=== PATIENT | female | born 1960 | race Caucasian/White ===

== ENCOUNTER → 2022-10-26 12:41 | Outpatient (CLI) | payer BC, SELFPAY ==
--- NOTE | ~2022-10-26 | XR_ITS ---
XR chest 2V 10/26/2022 13:07 Indication: Cough Procedure: 2 view chest Comparison: No prior studies for comparison. Findings: Bilateral interstitial infiltrates are present. Small pleural effusions. No pneumothorax. H eart size normal. Impression: 1: Bilateral interstitial infiltrates which may represent edema or pneumonia. 2: Small pleural effusions. Reviewed, dictated and finalized at location B. Impression: 1: Bilateral interstitial infiltrates which may represent edema or pneumonia. 2: Small pleural effusions.
== END ==
PROVIDERS: PCP Internal Medicine Geriatric Medicine
DX: R05.9 Cough, unspecified (principal); J90 Pleural effusion, not elsewhere classified; R91.8 Other nonspecific abnormal finding of lung field
CPT/HCPCS: 71046

== ENCOUNTER → 2022-12-09 11:41 | Outpatient (CLI) | payer BC, SELFPAY ==
--- NOTE | ~2022-12-09 | CT_ITS ---
Clinical Indication: Shortness of breath, pneumonia, fever CT Scan of the Chest with Contrast: Technique: Contiguous sections were acquired throughout the chest after intravenous administration of 75 cc of Omnipaque 350. Dose reduction technique was used on this scan by utilizing automated exposu re control and iterative reconstruction technique. The dose-length product (DLP) was 145.12 mGy-cm. Findings: There is no evidence of any significant mediastinal, hilar or axillary lymphadenopathy. No large cent ral pulmonary embolus. There is no evidence of aortic dissection or aneurysm. There is no evidence of pleural or pericardial effusion. The lungs are clear. No pulmonary nodules or infiltrates are noted. Images through the upper abdomen reveal probable left hepatic lobe cyst. Impression: Clear lungs. No significant abnormality seen. Reviewed, dictated and finalized at [facility]. Impression: Clear lungs. No significant abnormality seen.
[2022-12-09 12:07] LABS: Estimated Glomerular Filt Rate > 60
== END ==
PROVIDERS: PCP Internal Medicine Geriatric Medicine
DX: R06.02 Shortness of breath (principal); R50.81 Fever presenting with conditions classified elsewhere
CPT/HCPCS: 71260; Q9967

== ENCOUNTER 2025-03-27 13:55 | Outpatient (CLI) | payer BC, SELFPAY ==
--- NOTE | ~2025-03-27 | MM_ITS ---
EXAMINATION: screening [facility] BI w seven INDICATION: Asymptomatic, referred for screening mammogram COMPARISON: None available TECHNIQUE: Digital Breast Tomosynthesis CC, MLO views of Both breasts were obtained with computer-aided detection to assist in interpretation of the study. FINDINGS: There are scattered areas of fibroglandular density. There is an asymmetry seen on the MLO view in the Superior left breast at posterior third. Elsewhere, there are no mammographic features of malignancy. IMPRESSION: 1. Left breast Asymmetry. 2. No evidence of malignancy in the Right breast. RECOMMENDATION: Left breast Diagnostic mammogram with true lateral, appropriate spot compression views and an ultrasound if needed. BI-RADS Category 0: Incomplete: Needs additional imaging evaluation. Reviewed, dictated and finalized at location B. IMPRESSION: 1. Left breast Asymmetry. 2. No evidence of malignancy in the Right breast. RECOMMENDATION: Left breast Diagnostic mammogram with true lateral, appropriate spot compressio n views and an ultrasound if needed. BI-RADS Category 0: Incomplete: Needs additional imaging evaluation.
--- OUTSIDE RECORDS SUMMARY | 2025-03-27 15:37 | XMS_ITS | Encounter Summary ---
Author Organization [facility] Address [address] [place] [address] Care Team Providers Care Corral Boss Name Role Phone Justina Berry MD Primary Care Provider [phone] Encounter Details Date Type Department Care Team (Latest Contact Info) Description 08/27/2024 Spontohart Message Enc [address] [address] Justina Berry MD [address] [place] [address] [facility] medicine Social History Tobacco Use Types Packs/Day Years Used Date Smoking Tobacco: Never Smokeless Tobacco: Never Comments:Counseled by Dr. Valentine luna. AUDIT-C Answer Date Recorded Q1: How often do you have a drink containing alcohol? Never 05/18/2024 Q2: How many drinks containi ng alcohol do you have on a typical day when you are drinking? Patient does not drink Q3: How often do you have si x or more drinks on one occasion? 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
--- OUTSIDE RECORDS SUMMARY | 2025-03-27 15:37 | XMS_ITS | Clinical Summary ---
Author Organization [facility] Address [address] [address] Care Team Providers Care Client Support Consultant Name Role Phone Unavailable Primary Care Provider Unavailabl e Medications cefdinir (OMNICEF) 300 mg capsule Take 1 capsule (300 mg total) by mouth 2 (two) times a day for 7 days 14 Capsule 10/29/19 23 Active benazepriL (LOTENSIN) 20 mg tablet Take 1 Tablet (20 mg) by mouth daily. 90 Tablet 1 03/01/20 23 Active famotidine (PEPCID) 20 mg tablet Take 1 tablet (20 mg total) by mouth 2 (two) times a day as needed for heartburn 180 Tablet 1 03/01/20 23 Active indapamide (LOZOL) 1.25 mg tablet Take 1 tablet (1.25 mg total) by mouth daily as needed (Blood pressure above 140/80) 90 Tablet 1 03/01/20 23 Active atorvastatin (LIPITOR) 20 mg tablet Take 1 tablet (20 mg total) by mouth daily 90 Tablet 1 03/01/20 23 Active metFORMIN (GLUCOPHAGE XR) 500 mg Extended Release 24 hour tablet Take 2 tablets (1,000 mg total) by mouth daily with breakfast 180 Tablet 1 4 9:08 AM CDT 03/01/20 23 Active benzonatate (TESSALON) 100 mg capsule Take 1-2 capsules 3 times a day for cough as needed 42 Capsule 4 3:46 PM SALES ADMINISTRATION MANAGER 07/23/19 24 Active promethazine-d extromethorpha n (PHENERGAN-DM) 6.25-15 mg/5 mL syrup Take 5 mL by mouth every 4 (four) hours as needed for cough 120 mL 4 2:35 PM SALES ADMINISTRATION MANAGER 07/29/19 24 Active blood sugar diagnostic (OneTouch Verio test strips) Strip Use to test glucose levels twice daily 200 Strip 3 09/13/19 24 Active fluticasone propionate (FLONASE) 50 mcg/spray [place], Suspension nasal inhaler Administer 2 sprays in each nostril daily 16 Gram 11 09/13/19 24 Active traZODone (DESYREL) 50 mg tablet Take 1 tablet (50 mg total) by mouth nightly 90 Tablet 1 09/13/19 24 Active ipratropium bromide (ATROVENT) 21 mcg (0.03 %) [place], Non-Aerosol Administer 2 sprays into each nostril 2 (two) times a day 30 mL 5 09/13/19 24 Active traZODone (DESYREL) 50 mg tablet Take 1 tablet (50 mg total) by mouth nightly. 90 Tablet 1 4 6:49 PM CDT 03/14/20 24 Active metFORMIN (GLUCOPHAGE XR) 500 mg Extended Release 24 hour tablet Take 2 Tablets (1,000 mg) by mouth daily with breakfast. 180 Tablet 1 4 6:49 PM CDT 03/14/20 24 Active indapamide (LOZOL) 1.25 mg tablet Take 1 Tablet (1.25 mg) by mouth 1 time daily as needed. (Blood pressure above 140/80) 90 Tablet 1 4 2:17 PM SALES ADMINISTRATION MANAGER 03/14/20 24 Active glimepiride (AMARYL) 1 mg tablet Take 0.5-1 Tablets (0.5-1 mg) by mouth daily in the morning before breakfast. Adjusting to keep fasting blood sugar below 120. 90 Tablet 1 5 3:16 PM CDT 03/14/20 24 Active fluticasone propionate (FLONASE) 50 mcg/spray [place], Suspension nasal inhaler Administer 2 Sprays in each nostril daily. 16 Gram 11 4 2:23 PM CDT 03/14/20 24 Active famotidine (PEPCID) 20 mg tablet Take 1 Tablet (20 mg) by mouth 2 times daily as needed for heartburn. 180 Tablet 1 4 2:23 PM CDT 03/14/20 24 Active empagliflozin (Jardiance) 25 mg tablet Take 1 Tablet (25 mg) by mouth daily. 90 Tablet 2 03/14/20 24 Active benazepriL (LOTENSIN) 20 mg tablet Take 1 Tablet (20 mg) by mouth daily. 90 Tablet 1 4 2:17 PM SALES ADMINISTRATION MANAGER 03/14/20 Active atorvastatin (LIPITOR) 20 mg tablet Take 1 Tablet (20 mg) by mouth daily. 90 Tablet 1 5 4:28 PM SALES ADMINISTRATION MANAGER 03/14/20 24 Active atorvastatin (LIPITOR) 20 mg tablet Take 1 tablet (20 mg total) by mouth nightly at bedtime. 90 Tablet 1 05/18/20 24 Active benazepriL (LOTENSIN) 20 mg tablet Take 1 tablet (20 mg total) by mouth daily. 90 Tablet 1 05/18/20 24 Active famotidine (PEPCID) 20 mg tablet Take 1 tablet (20 mg total) by mouth 2 (two) times daily. 180 Tablet 1 05/18/20 Active fluticasone propionate (FLONASE) 50 mcg/spray [place], Suspension nasal inhaler ADMINISTER 2 SPRAYS IN EACH NOSTRIL DAILY. 16 Gram 5 05/18/20 Active glimepiride (AMARYL) 1 mg tablet Take 0.5-1 Tablets (0.5-1 mg) by mouth daily. 90 Tablet 1 5 3:15 PM SALES ADMINISTRATION MANAGER 05/18/20 24 Active ipratropium bromide (ATROVENT) 21 mcg (0.03 %) [place], Non-Aerosol ADMINISTER 2 sprays by nasal route 2 (two) times daily. 30 mL 1 05/18/20 Active metFORMIN (GLUCOPHAGE XR) 500 mg Extended Release 24 hour tablet Take 2 tablets (1,000 mg total) by mouth daily. 90 Tablet 1 5 4:28 PM SALES ADMINISTRATION MANAGER 05/18/20 24 Active cyanocobalamin (Vitamin B-12) 1,000 mcg Tablet Take 1 tablet (1,000 mcg total) by mouth daily. 90 Tablet 1 05/18/20 24 Active traZODone (DESYREL) 50 mg tablet Take 1 Tablet (50 mg) by mouth nightly as needed for sleep. 90 Tablet 1 05/18/20 24 Active metroNIDAZOLE (FLAGYL) 500 mg tablet Take 1 tablet (500 mg total) by mouth 2 (two) times a day for 7 days 14 Tablet 5 3:16 PM CDT 09/30/19 25 Active atorvastatin (LIPITOR) 20 mg tablet Take 1 Tablet (20 mg) by mouth daily at bedtime. 90 Tablet 1 5 12:43 PM CDT 11/16/19 25 Active benazepriL (LOTENSIN) 20 mg tablet Take 1 Tablet (20 mg) by mouth daily. 90 Tablet 1 5 12:43 PM CDT 11/16/19 25 Active famotidine (PEPCID) 20 mg tablet Take 1 tablet (20 mg total) by mouth 2 (two) times daily. 180 Tablet 1 11/16/19 25 Active fluticasone propionate (FLONASE) 50 mcg/spray [place], Suspension nasal inhaler Administer 2 sprays in each nostril once daily. 16 Gram 5 11/16/19 25 Active glimepiride (AMARYL) 1 mg tablet Take 0.5-1 tablet (0.5-1 mg total) by mouth daily. 90 Tablet 1 5 12:20 PM CDT 11/16/19 25 Active ipratropium bromide (ATROVENT) 21 mcg (0.03 %) [place], Non-Aerosol Administer 2 sprays in each nostril 2 (two) times daily. 30 mL 1 11/16/19 25 Active traZODone (DESYREL) 50 mg tablet Take 1 tablet (50 mg total) by mouth nightly as needed for Sleep. 90 Tablet 1 11/16/19 25 Active cyanocobalamin (Vitamin B-12) 1,000 mcg Tablet Take 1 tablet (1,000 mcg total) by mouth daily. 90 Tablet 1 11/16/19 25 Active indapamide (LOZOL) 1.25 mg tablet Take 1 tablet (1.25 mg total) by mouth daily. 30 Tablet 2 5 9:20 AM CDT 12/27/19 25 Active metFORMIN (GLUCOPHAGE XR) 500 mg Extended Release 24 hour tablet Take 2 tablets (1,000 mg total) by mouth daily. 90 Tablet 5 12:43 PM CDT 03/14/20 25 Active metFORMIN (GLUCOPHAGE XR) 500 mg Extended Release 24 hour tablet Take 2 tablets (1,000 mg total) by mouth daily. 90 Tablet 1 5 8:24 AM CDT 11/16/19 25 025 Discontinued Encounters Date Type Department Care Team Description 02/20/2025 External Device Data ST[facility] ABSTRACTION Provider, Abstract 01/09/2025 External Device Data [facility] ABSTRACTION Provider, Abstract from Last 3 Months Social History Tobacco Use Types Packs/Day Years Used Date Smoking Tobacco: Never Assessed Comments Unknown Sex and Gender Information Value Date Recorded Sex Assigned at Not on file Legal Sex Female 11:36 AM CDT Gender Identity Not on file Sexual Orientation Not on file Plan of Treatment Health Maintenance Due Date Last Done Comments DTAP/TDAP/TD VACCINES (1 - Tdap) 1981 HPV/Cotest (21-29) 1983 CERVICAL CANCER SCREENING 1992 HPV/Cotest (30-65) 1992 PAP SMEAR 1992 BREAST CANCER SCREENING 2002 COLORECTAL SCREENING 2007 Colorectal Cancer Screening 2007 FIT-DNA Q 3 years 2007 FIT/FOBT Q 1 year 2007 Flex Sig/CT Colonography Q 5 years 2007 ZOSTER VACCINE (1 of 2) 2012 RSV VACCINE (60+ or ) (1 - Risk 60-74 years 1-dose series) 2022 INFLUENZA VACCINE (#1) 2025 Insurance RX [employer] (INTERNAL) [facility] [employer] Commercial
--- OUTSIDE RECORDS SUMMARY | 2025-03-27 15:37 | XMS_ITS | Clinical Summary ---
Author Organization [facility] Address [address] [place] [address] Care Team Providers Care Financial Data Analyst Name Role Phone Justina Berry MD Primary Care Provider [phone] Allergies Active Allergy Reactions Criticality Noted Date Comments Amoxicillin-Pot Clavulanate Diarrhea,Nausea Only Low 10/10/2018 Dulaglutide Other (see comment) Low 02/01/2019 Bloating/Belching/G as Esomeprazole Other (see comment) Low 07/20/2019 Intestinal cramping with bid disong Levofloxacin Dizziness,Nausea Only Low 11/09/2022 Sulfa Antibiotics Diarrhea,Nausea and Vomiting,Nausea Only,Other (see comment),Unknown,Vom iting Low 07/20/2019 Medications Glucose Blood (ONETOUCH VERIO) test strip Use to test glucose levels twice daily 4 Active vitamin B-12 (CYANOCOBALAMIN ) (CYANOCOBALAMIN ) 1000 mcg tabletIndicatio ns:Vitamin B 12 deficiency Take 1 tablet (1,000 mcg total) by mouth daily. 90 tablet 1 5 026 Active traZODone (DESYREL) 50 MG tabletIndicatio ns:Primary insomnia Take 1 tablet (50 mg total) by mouth nightly as needed for Sleep. 90 tablet 1 5 Active ipratropium (ATROVENT) 0.03 % nasal sprayIndication s:Environmental and seasonal allergies 2 sprays by Nasal route 2 (two) times daily. 30 mL 1 5 Active glimepiride (AMARYL) 1 MG tabletIndicatio ns:Type 2 diabetes mellitus with hyperglycemia, without long-term current use of insulin (CMS/HCC HHS/HCC) Take 0.5-1 tablets (0.5-1 mg total) by mouth daily. 90 tablet 1 5 Active fluticasone propionate (FLONASE) 50 MCG/ACT nasal sprayIndication s:Environmental and seasonal allergies 2 sprays by Nasal route daily. 16 g 5 5 Active famotidine (PEPCID) 20 MG tabletIndicatio ns:Gastroesopha geal reflux disease without esophagitis Take 1 tablet (20 mg total) by mouth 2 (two) times daily. 180 tablet 1 5 025 Active empagliflozin (JARDIANCE) 25 MG tabletIndicatio ns:Type 2 diabetes mellitus with hyperglycemia, without long-term current use of insulin (CMS/HCC HHS/HCC) Take 1 tablet (25 mg total) by mouth daily. 90 tablet 3 5 Active benazepril (LOTENSIN) 20 MG tabletIndicatio ns:Type 2 diabetes mellitus with hyperglycemia, without long-term current use of insulin (CMS/HCC HHS/HCC),Hypert ension associated with diabetes (CMS/HCC HHS/HCC) Take 1 tablet (20 mg total) by mouth daily. 90 tablet 1 5 Active atorvastatin (LIPITOR) 20 MG tabletIndicatio ns:Type 2 diabetes mellitus with hyperglycemia, without long-term current use of insulin (CMS/HCC HHS/HCC),Hyperl ipidemia associated with type 2 diabetes mellitus (CMS/HCC HHS/HCC) Take 1 tablet (20 mg total) by mouth nightly at bedtime. 90 tablet 1 5 Active indapamide (LOZOL) 1.25 MG tabletIndicatio ns:Hypertension associated with diabetes (CMS/HCC HHS/HCC) Take 1 tablet (1.25 mg total) by mouth daily. 30 tablet 2 5 Active metFORMIN ER (GLUCOPHAGE-XR) 500 MG 24 hr tabletIndicatio ns:Type 2 diabetes mellitus with hyperglycemia, without long-term current use of insulin (CMS/HCC HHS/HCC) Take 2 tablets (1,000 mg total) by mouth daily. 90 tablet 5 Active metFORMIN ER (GLUCOPHAGE-XR) 500 MG 24 hr tabletIndicatio ns:Type 2 diabetes mellitus with hyperglycemia, without long-term current use of insulin ([facility]) Take 2 tablets (1,000 mg total) by mouth daily. 90 tablet 1 5 025 Discontinued Active Problems No known active problems Immunizations Immunization Administration Dates Next Due Fluzone (IIV3, Trivalent, 0. 5 ML Prefilled Syringe) 05/18/2024 Influenza (Generic) 05/08/2021,,04/17/2015,2013 Influenza Adult (Generic) 05/14/2022,,04/02/2020,2018,07/07/2016 MMR (MMRII) 10/28/1988 Pneumococcal (Pneumovax 23) 07/07/2016 Pneumococcal (Prevnar 13) 07/11/2014 Pneumococcal (Prevnar 20) 11/15/2024 Shingrix 10/02/2022,08/03/2022 Tdap (Generic) 08/01/2018,06/15/2008 Social History Tobacco Use Types Packs/Day Years Used Date Smoking Tobacco: Never Smokeless Tobacco: Never Tobacco Cessation:Counseling Given: Yes Comments:Counseled by Dr. Berry. AUDIT-C Answer Date Recorded Q1: How often do you have a drink containing alcohol? Never 05/18/2024 Q2: How many drinks containi ng alcohol do you have on a typical day when you are drinking? Patient does not drink Q3: How often do you have si x or more drinks on one occasion? Never 05/18/2024 PHQ-2 Answer Date Recorded Patient Health Questionnaire-2 Score 0 11/15/2024 Comments Unknown Sex and Gender Information Value Date Recorded Sex Assigned at Not on file Legal Sex Female 9:00 AM CDT Gender Identity Not on file Sexual Orientation Not on file Last Filed Vital Signs Vital Sign Reading Time Taken Comments Blood Pressure 108/59 11/15/2024 8:18 AM CDT Pulse 69 11/15/2024 8:18 AM CDT Temperature 37 C (98.6 F) 11/15/2024 8:18 AM CDT Respiratory Rate 16 11/15/2024 8:18 AM CDT Oxygen Saturation 98% 11/15/2024 8:18 AM CDT Inhaled Oxygen Concentration - - Weight 67.8 kg (149 lb 6.4 oz) 11/15/2024 8:18 A M CDT Height 167.6 cm (5' 6) 11/15/2024 8:18 AM CDT Body Mass Index 24.11 11/15/2024 8:18 AM CDT Plan of Treatment Upcoming Encounters Date Type Department Care Team (Late st Contact Info) Description 05/23/2025 9: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 Office Visit [facility] [address] [place] [address] [address] [place], [place] [id number] Justina Berry MD [address] [facility] [address] [place], [place] [id number] Health Maintenance Due Date Last Done Comments Cervical Cancer Screening Pap with HPV Testing (Age 30 to 64) Every 5 Years 1992 COVID-19 Vaccine ( season) 2025 12/06/2021, 10/09/2020, 09/17/2020 Hemoglobin A1C 05/02/2025 10/31/2024, 08/0 03/2024, 08/27/2023, Additional history exists Annual Physical 05/18/2025 05/18/2024 Lipid Panel 10/31/2025 10/31/2024 Kidney Health Evaluation 11/15/2025 11/15/2024 Mammogram Screening 03/14/2026 03/14/2024, 03/01/2023, 02/26/2022, Additional history exists Diabetes: Retinopathy Eye Exam 06/13/2026 06/13/2024 Cervical Cancer Screening Pap Smear (Age 30 to 64) Every 3 Years 03/10/2027 03/10/2024 Cervical Cancer Screening with HPV 03/10/2027 DTaP, Tdap and Td Vaccines (3 - Td or Tdap) 08/01/2028 08/01/2018, 06/15/2008 Colorectal Cancer Screening Colonoscopy (10 Years) 07/27/2032 07/27/2022 RSV Immunization or 60+ Years (1 - 1-dose 75+ series) 2037 Zoster Vaccines Completed 10/02/2022, 08/03/2022 Hepatitis C Completed 10/31/2024 PHQ-2 ([facility]) Completed 11/15/2024 Pneumococcal Vaccine: 50+ Years Completed 11/15/2024, 07/07/2016, 07/11/2014 Meningococcal B Vaccine Aged Out No l onger eligible based on patient's age to complete this topic Meningococcal Vaccine Aged Out No angela zen eligible based on patient's age to complete this topic RSV Immunizations Under 20 Months Aged Out No longer eligible based on patient's age to complete this topic Procedures Procedure Name Priority Date/Time Associated Diagnosis Comments HEPATITIS C ANTIBODY W/RFX TO HCV RNA Routine 10/31/2024 8:08 AM CDT LIPID PANEL Routine 10/31/2024 8:08 AM CDT HEMOGLOBIN, GLYCOSYLATED Routine 10/31/2024 8:08 AM CDT DIABETIC RETINOPATHY EXAM (NEGATIVE)(SCAN ORDER) Routine 06/13/2024 COLONOSCOPY GENERIC (SCAN ORDER) 07/27/2022 from Last 3 Months or Most Recently Relevant to Health Maintenance Results * HEPATITIS C ANTIBODY W/RFX TO HCV RNA (10/31/2024 8:08 AM CDT) HEPATITIS C AB NON-REACT JOSE NON-REACT JOSE [facility] Comment: HCV antibody was non-reactive. There is no laboratory evidence of HCV infection. In most cases, no further action is required. However, if recent HCV exposure is suspected, a test for HCV RNA (test code 31410) is suggested. For additional information please refer to http://education.[employer]/faq/WLC94e8 (This link is being provided for informational/ educational purposes only.) 10/31/2024 8:08 AM CDT 10/31/2024 8:09 AM CDT Narrative Resulting Agency Comment Performing Organization Information: Site ID: [id number] Name: [facility] Address: [address] [place] [address] Director: Korina Wolff MD Justina Berry MD LABORATORY Final Result Performing Organization Address City/[facility]/ZIP Co de Phone Number [facility] [place] [address] [place] [address], * (ABNORMAL) HEMOGLOBIN, GLYCOSYLATED (10/31/2024 8:08 AM CDT) HGB A1C 7.1(H) <5.7 % of total Hgb [facility] [place] [place] Comment: For someone without known diabetes, a hemoglobin A1c value of 6.5% or greater indicates that they may have diabetes and this should be confirmed with a follow-up test. For someone with known diabetes, a value <7% indicates that their diabetes is well controlled and a value greater than or equal to 7% indicates suboptimal control. A1c targets should be individualized based on duration of diabetes, age, comorbid conditions, and other considerations. Currently, no consensus exists regarding use of hemoglobin A1c for diagnosis of diabetes for children. 10/31/2024 8:08 AM CDT 10/31/2024 8:09 AM CDT Narrative Resulting Agency Comment Performing Organization Information: Site ID: Name: [facility] Address: [address] [place] [id number] Director: Korina Wolff Justina Berry MD LABORATORY Final Result Performing Organization Address [facility] Co de Phone Number [facility] [address], * (ABNORMAL) LIPID PANEL (10/31/2024 8:08 AM CDT) CHOLESTEROL 142 <200 mg/dL [facility] HDL 37(L) > OR = 50 mg/dL [facility] TRIGLYCERIDES 244(H) <150 mg/dL [facility] Comment: If a non-fasting specimen was collected, consider repeat triglyceride testing on a fasting specimen if clinically indicated. Wandy et al. J. of Clin. Lipidol. 2015;9:129-169. LDL (CALCULATED) 71 mg/dL (calc) [facility] Comment: Reference range: <100 Desirable range <100 mg/dL for primary prevention; <70 mg/dL for patients with CHD or diabetic patients with > or = 2 CHD risk factors. LDL-C is now calculated using the Jessica calculation, which is a validated novel method providing better accuracy than the Friedewald equation in the estimation of LDL-C. Calos TREVIZO et al. BRANDON. 2013;310(19): 2766-1628 (http://education.[employer]/faq/DMB168) CHOL/HDL RATIO 3.8 <5.0 (calc) [facility] NON HDL CHOLESTEROL 105 <130 mg/dL (calc) [facility] Comment: For patients with diabetes plus 1 major ASCVD risk factor, treating to a non-HDL-C goal of <100 mg/dL (LDL-C of <70 mg/dL) is considered a therapeutic option. 10/31/2024 8:08 AM CDT 10/31/2024 8:09 AM CDT Narrative Resulting Agency Comment Performing Organization Information: Site ID: [id number] Name: [facility] Address: [address] [facility] [place] [address] Director: Korina Wolff MD Justina Berry MD LABORATORY Final Result Performing Organization Address [facility] Co de Phone Number JENI MCCOLLUM [facility] [address] [facility] [address], * DIABETIC RETINOPATHY EXAM (NEGATIVE) (06/13/2024) [facility] Scanned SCANNING Final Resu lt Performing Organization Address [facility] Co de Phone Number [facility] * COLONOSCOPY GENERIC (SCAN ORDER) (07/27/2022) 07/27/2022 [facility] Scanned SCANNING Final Resu lt from Last 3 Months or Most Recently Relevant to Health Maintenance Insurance [facility] Care Teams Financial Data Analyst Relationship Specialty Start Date End Date Justina Berry MD [address] [facility] [address] [place] [address] PCP - General INTERNAL MEDICINE 03/16/24
--- OUTSIDE RECORDS SUMMARY | 2025-03-27 15:38 | XMS_ITS | Encounter Summary ---
Author Organization [facility] Address [address] [place] [address] Phone Care Team Providers Care Basin Tender Name Role Phone Mckenzie Goodman MD Primary Care Provider [phone] Kathie Davis MD Unavailable [phone] Wayne Payne DO Unavailable [phone] Jil Pisano MD Unavailable Wally Meneses MD PhD Unavailable Angel Justin MD Unavailable No, Physician Primary Care Provider [phone] Encounter Details Date Type Department Care Team (Late st Contact Info) Description 02/04/2017 Orders Only [facility] [address] [place] [address] Mckenzie Goodman MD [address] [place] [address] Unspecified vitamin D deficiency (Primary Dx); Diabetes mellitus without complication (HCC); Other B-complex deficiencies Social History Tobacco Use Types Packs/Day Years Used Date Smoking Tobacco: Never Comments Unknown Sex and Gender Information Value Date Recorded Sex Assigned at Not on file Legal Sex Female 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 Gender Identity Not on file Sexual Orientation Not on file documented as of this encounter Plan of Treatment Scheduled Orders Name Type Priority Associated Diagnoses Orde r Schedule Microalbumin / creatinine ratio, urine, random Lab Routine Diabetes mellitus without complication (HCC) Expected: 02/16/2017, Expires: 02/04/2018 documented as of this encounter Procedures Procedure Name Priority Date/Time Associated Diagnosis Comments MICROALBUMIN, RANDOM URINE (W/CREATININE) Routine 02/25/2017 7:38 AM CDT CREATININE, URINE, RANDOM Routine 02/25/2017 7:38 AM CDT VITAMIN D 25 HYDROXY Routine 02/25/2017 7:38 AM CDT Unspecified vitamin D deficiency CHOLESTEROL, LDL, DIRECT Routine 02/25/2017 7:38 AM CDT Diabetes mellitus without complication (HCC) HEMOGLOBIN A1C Routine 02/25/2017 7:38 AM CDT Diabetes mellitus without complication (HCC) VITAMIN B12 Routine 02/25/2017 7:38 AM CDT Other B-complex deficiencies COMPREHENSIVE METABOLIC PANEL Routine 02/25/2017 7:38 AM CDT Diabetes mellitus without complication (HCC) documented in this encounter Results * MICROALBUMIN, RANDOM URINE (W/CREATININE) (02/25/2017 7:38 AM CDT) Microalbumin, ur 1.6 See Note: mg/dL [facility] - [place] Comment: Reference Range: Reference Range Not established Microalbumin/creat ratio 6 <30 mcg/mg creat [facility] [place] Comment: The ADA defines abnormalities in albumin excretion as follows: Category Result (mcg/mg creatinine) Normal <30 Microalbuminuria 30-299 Clinical albuminuria > OR = 300 The ADA recommends that at least two of three specimens collected within a 3-6 month period be abnormal before considering a patient to be within a diagnostic category. 02/25/2017 7:38 AM CDT 02/25/2017 7:38 AM CDT Narrative [facility] - 02/26/2017 11:55 AM CDT FASTING:YES Resulting Agency Comment Performing Organization Information: Site ID: [id number] Name: Jeni Reese Address: [id number] [place] [address] Director: Wilfrido Hernandez D.O., MPH us Mckenzie Goodman MD LAB URINE ORDERABLES Final Result Performing Organization Address [facility] Co de Phone Number [facility] * Creatinine, urine, random (02/25/2017 7:38 AM CDT) Creatinine, ur 255 20 - 320 mg/dL [facility] [employer] - [place] 02/25/2017 7:38 AM CDT 02/25/2017 7:38 AM CDT Narrative [facility] - 02/26/2017 11:55 AM CDT FASTING:YES Resulting Agency Comment Performing Organization Information: Site ID: [id number] Name: Jeni Reese Address: [id number] [place] [address] Director: Wilfrido Hernandez D.O., MPH us Mckenzie Goodman MD LAB URINE ORDERABLES Final Result Performing Organization Address [facility] Phone Number [facility] * (ABNORMAL) Comprehensive metabolic panel (02/25/2017 7:38 AM CDT) Glucose 285(H) 65 - 99 mg/dL [facility] [employer] - [place] Comment: Fasting reference interval For someone without known diabetes, a glucose value >125 mg/dL indicates that they may have diabetes and this should be confirmed with a follow-up test. BUN 15 7 - 25 mg/dL [facility] [place] Creatinine 0.82 0.50 - 1.05 mg/dL [facility] [place] Comment: For patients >49 years of age, the reference limit for Creatinine is approximately 13% higher for people identified as -Salvadorean. eGFR NON-AFR. CUBAN 81 > OR = 60 mL/min/1 .73m2 [facility] [place] EGFR 94 > OR = 60 mL/min/1 .73m2 [facility] [place] BUN/creat ratio NOT APPLICABLE 6 - 22 (calc) [facility] [place] Sodium 142 135 - 146 mmol/L [facility] [place] Potassium, pl 3.8 3.5 - 5.3 mmol/L [facility] [place] Chloride 103 98 - 110 mmol/L [facility] [place] CO2 29 20 - 31 mmol/L [facility] [place] Calcium 9.4 8.6 - 10.4 mg/dL [facility] [place] Protein, sr 6.9 6.1 - 8.1 g/dL [facility] [place] Albumin 4.3 3.6 - 5.1 g/dL [facility] [place] Globulin 2.6 1.9 - 3.7 g/dL (calc) [facility] [place] Alb/glob ratio 1.7 1.0 - 2.5 (calc) [facility] [place] Bilirubin, total 0.8 0.2 - 1.2 mg/dL [facility] [place] Alk phos 110 33 - 130 U/L [facility] [place] AST 21 10 - 35 U/L [facility] [place] ALT (SGPT) 28 6 - 29 U/L [facility] [place] Blood specimen (specimen) 02/25/2017 7:38 AM CDT 02/25/2017 7:38 AM CDT Narrative [facility] - 02/26/2017 11:55 AM CDT FASTING:YES Resulting Agency Comment Performing Organization Information: Site ID: [id number] Name: Jeni Reese Address: [address] [place] [address] [place] [address] Director: Wilfrido Hernandez D.O., MPH Mckenzie Goodman MD LAB BLOOD ORDERABLES Final Result [facility] - [facility] [place] * Cholesterol, LDL, direct (02/25/2017 7:38 AM CDT) LDL, direct 35 <130 mg/dL [facility] - [facility] Comment: Greatly elevated Triglycerides values (>1200 mg/dL) interfere with the dLDL assay. As no Triglycerides testing was ordered, interpret results with caution. Desirable range <100 mg/dL for patients with CHD or diabetes and <70 mg/dL for diabetic patients with known heart disease. Blood specimen (specimen) 02/25/2017 7:38 AM CDT 02/25/2017 7:38 AM CDT Narrative [facility] - 02/26/2017 11:55 AM CDT FASTING:YES Resulting Agency Comment Performing Organization Information: Site ID: [id number] Name: Jeni Reese Address: [address] [place] [address] Director: Wilfrido Hernandez D.O., MPH us Mckenzie Goodman MD LAB BLOOD ORDERABLES Final Result Performing Organization Address [facility] Co de Phone Number [employer] - [facility] [place] * (ABNORMAL) Hemoglobin A1c (02/25/2017 7:38 AM CDT) Hgb A1C 7.4(H) <5.7 % of total Hgb [facility] Comment: For someone without known diabetes, a [...] A1c for diagnosis of diabetes for children. Blood specimen (specimen) 02/25/2017 7:38 AM CDT 02/25/2017 7:38 AM CDT Narrative [facility] - 02/26/2017 11:55 AM CDT FASTING:YES Resulting Agency Comment Performing Organization Information: Site ID: [id number] Name: [facility] Address: [id number] [place] [address] [place] [address] Director: Wilfrido Hernandez D.O., MPH us Mckenzie Goodman MD LAB BLOOD ORDERABLES Final Result Performing Organization Address [facility] Co de Phone Number [facility]ano * Vitamin D 25 hydroxy (02/25/2017 7:38 AM CDT) Vitamin D 25-OH 33 30 - 100 ng/mL [facility] Comment: Vitamin D Status 25-OH Vitamin D: Deficiency: <20 ng/mL Insufficiency: 20 - 29 ng/mL Optimal: > or = 30 ng/mL For 25-OH Vitamin D testing on patients on D2-supplementation and patients for whom quantitation of D2 and D3 fractions is required, the QuestAssureD(TM) 25-OH VIT D, (D2,D3), LC/MS/MS is recommended: order code 86180 (patients >2yrs). For more information on this test, go to: http://education.GHash.IO/faq/HKO790 (This link is being provided for informational/educational purposes only.) Blood specimen (specimen) 02/25/2017 7:38 AM CDT 02/25/2017 7:38 AM CDT Narrative [facility] - 02/26/2017 11:55 AM CDT FASTING:YES Resulting Agency Comment Performing Organization Information: Site ID: [id number] Name: Jeni Reese Address: [address] [place] [address] Director: Wilfrido Hernandez D.O., MPH Mckenzie Goodman MD LAB BLOOD ORDERABLES Final Result Performing Organization Address [facility] Co de Phone Number [facility] * Vitamin B12 (02/25/2017 7:38 AM CDT) Vitamin B12 846 200 - 1,100 pg/mL [facility] Blood specimen (specimen) 02/25/2017 7:38 AM CDT 02/25/2017 7:38 AM CDT Narrative [facility] - 02/26/2017 11:55 AM CDT FASTING:YES Resulting Agency Comment Performing Organization Information: Site ID: [id number] Name: [facility] Address: [address] [place] [address] Director: Wilfrido Hernandez D.O., MPH Mckenzie Goodman MD LAB BLOOD ORDERABLES Final Result Performing Organization Address [facility] Co de Phone Number [facility] documented in this encounter Visit Diagnoses Diagnosis Unspecified vitamin D deficiency- Primary Diabetes mellitus without complication (HCC) Type II or unspecified type diabetes mellitus without mention of complication, not stated as uncontrolled Other B-complex deficiencies documented in this encounter Additional Health Concerns Infection Onset Date Last Indicated Resolved Time COVID: Suspected 01/16/2020 01/16/2020 01/20/2020 12:41 AM CDT Respiratory Infection (KAYE), contact + droplet Comment:Automatically added due to negative COVID-19 result. 01/20/2020 01/20/2020 02/03/2020 3:0 5 AM CDT COVID: Suspected 06/24/2021 06/24/2021 06/24/2021 3:44 PM CREDIT REPORTING CLERK COVID: Suspected 10/06/2022 10/06/2022 10/06/2022 11:18 AM CDT documented as of this encounter Care Teams Basin Tender Relationship Specialty Start Date End Date Mckenzie Goodman MD PCP - General 10/23/16 07/26/24 No, Physician PCP - General 09/27/24 Kathie Davis MD Consulting Physician Gastroenterology 07/13/17 Wayne Payne DO [address] [place] [address] Optometry 07/13/17 Jil Pisano MD [address] [address] Air Traffic [employer] Supervisor Obstetrics and Gynecology 07/13/17 Wally Meneses MD PhD [address] [address] Referring Physician Endocrinology 09/13/19 Angel Justin MD [address] [place] [address] Surgeon Orthopedic Surgery 12/06/20 documented as of this encounter
--- OUTSIDE RECORDS SUMMARY | 2025-03-27 15:38 | XMS_ITS | Encounter Summary ---
Author Organization [facility] Address [address] [place] [address] Phone Care Team Providers Care Education Diagnostician Name Role Phone Mckenzie Goodman MD Primary Care Provider [phone] Kathie Davis MD Unavailable Wayne Payne DO Unavailable Jil Pisano MD Unavailable [phone] Wally Meneses MD PhD Unavailable Angel Justin MD Unavailable [phone] No, Physician Primary Care Provider [phone] Encounter Details Date Type Department Care Team (Late st Contact Info) Description 10/26/2022 Orders Only [facility] [address] [place] [address] Mckenzie Goodman MD [address] [place] [address] Social History Tobacco Use Types Packs/Day Years Used Date Smoking Tobacco: Never Smokeless Tobacco: Never Alcohol Use Standard Drinks/Week Comments No 0 (1 standard drink = 0.6 oz pur e alcohol) PHQ-2 Answer Date Recorded PHQ-2 Total Score (If total score is 3 or more points, staff should administer the PHQ-9) 0 08/24/2022 Comments No Sex and Gender Information Value Date Recorded Sex Assigned at Not on file Legal Sex Female 3:06 PM GROUTMAN Gender Identity Not on file Sexual Orientation Not on file Occupation Industry Job Start Date Job End Date Not on file Not on file Not on file Not on file documented as of this encounter Plan of Treatment Not on file documented as of this encounter Procedures Procedure Name Priority Date/Time Associated Diagnosis Comments SCAN - RADIOLOGY/IMAGING 10/26/2022 documented in this encounter Results * SCAN - RADIOLOGY/IMAGING (10/26/2022) Anatomical Region Laterality Modality Other us Mckenzie Goodman MD Final Resu lt documented in this encounter Visit Diagnoses Not on filedocumented in this encounter Care Teams Education Diagnostician Relationship Specialty Start Date End Date Mckenzie Goodman MD PCP - General 10/23/16 07/26/24 No, Physician PCP - General 09/27/24 Kathie Davis MD Consulting Physician Gastroenterology 07/13/17 Wayne Payne DO [address] [place] [address] Optometry 07/13/17 Jil Pisano MD [address] [address] [employer] Drawing Operator Obstetrics and Gynecology 07/13/17 Wally Meneses MD PhD [address] [address] Referring Physician Endocrinology 09/13/19 Angel Justin MD [address] [place] [address] Surgeon Orthopedic Surgery 12/06/20 documented as of this encounter
--- OUTSIDE RECORDS SUMMARY | 2025-03-27 15:38 | XMS_ITS | Clinical Summary ---
Author Organization [facility] Address [address] [place] [address] Care Team Providers [employer] Name Role Phone Kathie Davis MD Unavailable [phone] Wayne Payne DO Unavailable [phone] Jil Pisano MD Unavailable Wally Meneses MD PhD Unavailable Angel Justin MD Unavailable [phone] No, Physician Primary Care Provider [phone] Allergies Active Allergy Reactions Criticality Noted Date Comments Amoxicillin-Pot Clavulanate Diarrhea,Nausea only Low 10/10/2018 Esomeprazole Other (See comments) Low 07/20/2019 Intestinal cramping with bid disong Levofloxacin Dizziness,Nausea only Low 11/09/2022 Semaglutide Nausea only Low 10/21/2018 Sulfa (Sulfonamide Antibiotics) Unknown,Diarrhea,Franky sea only,Vomiting,Nausea And Vomiting,Other (See comments) Low 07/20/2019 Dulaglutide Other (See comments) Low 02/01/2019 Bloating/Belching/G as Medications ipratropium (Atrovent) 21 mcg (0.03 %) nasal sprayIndications:C hronic rhinitis Administer 2 sprays into each nostril 2 (two) times a day 30 mL 5 09/13/19 Active Additional Information Patient not taking.Reported on 03/12/2025 blood glucose diagnostic (OneTouch Verio test strips) stripIndications:T ype 2 diabetes mellitus with microalbuminuria, without long-term current use of insulin ([facility]) Use to test glucose levels twice daily E11.9 200 strip 3 09/13/19 Active atorvastatin (LIPITOR) 20 mg tabletIndications: Type 2 diabetes mellitus with microalbuminuria, without long-term current use of insulin ([facility]),Multiple-typ e hyperlipidemia Take 1 tablet (20 mg total) by mouth daily 90 tablet 1 03/14/20 Active benazepriL (LOTENSIN) 20 mg tabletIndications: Hypertension complicating diabetes ([facility]) Take 1 tablet (20 mg total) by mouth daily 90 tablet 1 03/14/20 Active empagliflozin (Jardiance) 25 mg tabletIndications: Type 2 diabetes mellitus with microalbuminuria, without long-term current use of insulin ([facility]) Take 1 tablet (25 mg total) by mouth daily 90 tablet 2 03/14/20 Active famotidine (PEPCID) 20 mg tabletIndications: Gastroesophageal reflux disease without esophagitis Take 1 tablet (20 mg total) by mouth 2 (two) times a day as needed for heartburn 180 tablet 1 03/14/20 Active Additional Information Patient not taking.Reported on 03/12/2025 fluticasone propionate (FLONASE) 50 mcg/actuation nasal sprayIndications:C hronic rhinitis Administer 2 sprays into each nostril daily 1 each 03/14/20 Active Additional Information Patient not taking.Reported on 03/12/2025 glimepiride (AMARYL) 1 mg tabletIndications: type 2 diabetes mellitus Take 0.5-1 tablets (0.5-1 mg total) by mouth daily before breakfast Adjusting to keep fasting blood sugar below 120 90 tablet 1 03/14/20 Active Additional Information Patient not taking.Reported on 03/12/2025 indapamide (LOZOL) 1.25 mg tabletIndications: Hypertension complicating diabetes ([facility]),History of kidney stones Take 1 tablet (1.25 mg total) by mouth daily as needed (Blood pressure above 140/80) 90 tablet 1 08/27/20 24 Active metFORMIN XR (GLUCOPHAGE XR) 500 mg 24 hr tabletIndications: Type 2 diabetes mellitus with microalbuminuria, without long-term current use of insulin (HCC) Take 2 tablets (1,000 mg total) by mouth daily with breakfast 180 tablet 1 03/14/20 24 Active traZODone (DESYREL) 50 mg tabletIndications: Adjustment insomnia Take 1 tablet (50 mg total) by mouth nightly 90 tablet 1 03/14/20 24 Active Additional Information Patient not taking.Reported on 03/12/2025 cyanocobalamin (Vitamin B-12) 1,000 mcg tabletIndications: Prevention of Vitamin B12 Deficiency Take 1 tablet (1,000 mcg total) by mouth daily 03/14/20 Active Additional Information Patient not taking.Reported on 03/12/2025 Active Problems Problem Noted Date Diagnosed Date High grade squamous intraepi thelial lesion (HGSIL), grade 3 JOVANI, on biopsy of cervix 05/26/2024 Overview (05/28/2024): New diagnosis June 07, 2024 Dr. Pisano managing Viral URI with cough 07/29/2023 Assessment & Plan (07/29/2023 2:42 PM IMAGING CLERK): Symptoms for 2 weeks that have improved since onset, no fevers. Tested negative for COVID at home. Dry cough noted throughout exam, no other acute findings. Vitals stable. CXR done this morning was unremarkable. Likely viral, rxd promethazine Dm as needed for cough. Continue sinus rinses. Discussed antihistamine use (zyrtec/frankie) to help dry up mucous. Tylenol/Ibuprofen as needed for pain. Increase fluids (water) Cool mist humidifier at night Use sinus rinses to help flush bacteria and help with congestion. Encouraged honey, marshmallows, gelatin, or chloraseptic to help coat throat. Call with any worsening or persistent symptoms. Neutrophilia 11/23/2022 SOB (shortness of breath) 11/23/2022 Assessment & Plan (12/01/2022 4:08 PM CDT): Has resolved after diagnosis of interstitial PNA last month via CXR at [facility]. Repeat CXR here at [facility] on 11/13/22 was unremarkable, however patient still having fevers. Will order high resolution CT chest to r/o interstitial disease. Will repeat CBC due to neutrophilia on 11/09/22. Will refer to soccer ball assembler for further assessment. Finish most recent round of Doxycycline as directed. Fever 11/09/2022 Assessment & Plan (12/01/2022 4:08 PM CDT): Thought to be related to Pneumonia, has persisted for 6 weeks despite 3 weeks worth of antibiotic treatment. Has not had fevers while taking anitbiotics, only in between dosing. WBCs 2 weeks ago were elevated at 11.9 with neutrophilia at 10,115. No other abnormalities on differential. Emphysema, RLD. repeat CBC today. Ordered high resolution CT w contrast to r/o further PNA, mass, Finish most recent round of Doxycycline (3 days left). Call with any fevers. Will refer to [place] Inspector for further assessment. Assessment & Plan (11/09/2022 2:21 PM CDT): Likely related to pneumonia, see plan above. Family history of colon cancer 02/24/2022 Overview (02/24/2022): Added automatically from request for surgery [id number] Personal history of colonic polyps 02/24/2022 Overview (02/24/2022): Added automatically from request for surgery [id number] Adjustment insomnia 01/12/2018 Chronic rhinitis 12/02/2013 Overview (10/23/2016): Chronic rhinitis Hypertension complicating diabetes 12/02/2013 Overview (10/23/2016): Benign essential HTN Assessment & Plan (11/23/2022 3:29 PM CDT): BP stable in office today on current therapy. Continue current regimen and low salt diet. Assessment & Plan (11/09/2022 2:21 PM CDT): BP stable on current therapy. No acute exam findings. Continue current regimen and low salt diet. Diabetes mellitus 12/02/2013 Overview (10/23/2016): Diabetes mellitus Assessment & Plan (07/11/2019 9:46 AM IMAGING CLERK): She is here for follow up and evaluation of her diabetes since beginning Juluv about 4 weeks ago. Pt did not bring her glucometer or log of fasting blood sugars with her to this visit and reports that she has not been taking her sugar everyday. She will take fasting sugars daily for the next 2 weeks and then send a my chart message with her numbers. If her fasting blood sugars remain greater than 120 will add invokana or jardiance. She will have a HgbA1C prior to her visit with Dr. Ugarte in August. Multiple-type hyperlipidemia 12/02/2013 Overview (10/23/2016): Hyperlipemia History of kidney stones 12/02/2013 Overview (10/23/2016): Kidney stones Resolved Problems Problem Noted Date Diagnosed Date Resolved Date Interstitial pneumonia of both lungs 11/09/2022 09/13/2023 Assessment & Plan (11/09/2022 2:20 PM CDT): PNA confirmed on CXR done at [facility] 10/26/22. URI symptoms since 10/06/22 have improved, now just fatigued with low grade fevers. Has completed both Doxycycline and cefdinir with mild improvement, attempted levaquin but it made her dizzy and nauseous. Last labs were in August, will check CMP, CBC. Rxd another 7 days of cefdinir as directed. Push fluids. Keep repeat CXR and follow up in 1 month. Cough 10/06/2022 11/09/2022 Assessment & Plan (10/26/2022 12:20 PM CDT): Acute problem, present times about 4 weeks Physical examination as documented - no signs/symptoms of serious illness noted COVID 19 and influenza A/B in office - ALL negative Patient previously treated with doxycycline after a period of symptom management alone - no improvement/difference per patient report Suspect patient's symptoms are viral in etiology, possibly a bronchitis Discussed following up in office if fever continues to recur to draw labs to assess autoimmune etiology as autoimmune disease occasionally starts with abnormal recurrent/intermittent fever - discussed that I still believe symptoms are likely lingering viral infection vs patient having contracted possibly different viral infections shortly after resolution of one infection due to having similar symptoms that are resolving - patient verbalized understanding and agreement Recommended CXR (due to diminished breath sounds in bilateral lower lung perez) and continued symptom management/monitoring at this time (with a focus of suppressing cough prophylactically to help with chest discomfort, which is likely MSK strain secondary to coughing) - patient agreeable to plan Orders for AMS STAFF to arrange CXR - cough, rule out pneumonia vs structural abnormality Give fax number to patients for CXR results Orders for Rojelio Dickinson to arrange Continue benzonatate as needed for cough Continue acetaminophen and Aleve as needed for chest discomfort Consider OTC medications for symptoms as well - Mucinex to help thin mucous Stay hydrated, eat well, rest as needed Continue monitoring symptoms - report persistent or worsening symptoms to the office or go to ER Fax results of CXR to Dr. Ugarte and Gunnar Rivera NP Follow up as scheduled with Dr. Ugarte or sooner if necessary Assessment & Plan (10/06/2022 11:16 AM CDT): Acute problem, present times about 1 week Physical examination as documented - no signs/symptoms of serious illness noted COVID 19 and influenza A/B in office - ALL negative Suspect likely viral etiology Recommended continued symptom management/monitoring - patient agreeable to plan Orders for AMS STAFF to arrange None at this time Orders for Rojelio Dickinson to arrange Start benzonatate as needed for cough - can combine with OTC Delsym to help with cough Continue sinus rinses, DayQuil/NyQuil, Anthony's, Tylenol/Advil as needed Consider restarting Flonase and Atrovent nasal sprays - call office if needing refill Continue Benadryl at night - consider adding Zyrtec to morning medications Continue monitoring symptoms - report persistent or worsening symptoms to the office or go to ER Follow up as scheduled with Dr. Ugatre or sooner if necessary Encounter for screening colonoscopy 02/24/2022 08/24/2022 Overview (02/24/2022): Added automatically from request for surgery [id number] Traumatic closed fracture of lateral malleolus with minimal displacement 11/29/20200 12/2022 Chronic GERD 01/12/2018 06/04/2020 Right shoulder tendinitis 08/20/2017 Vitamin D deficiency 12/02/2013 020 Overview (10/23/2016): Vitamin D deficiency Cobalamin deficiency 12/02/2013 020 Overview (10/23/2016): B12 deficiency Encounters Date Type Department Care Team Description 03/19/2025 [facility] [address] [place] [address] Jil Pisano MD Pap and High Risk HPV and Genotyping (Cytology Component) 03/12/2025 1:35 PM CDT - 03/12/2025 11:59 PM CDT Hospital Encounter [facility] [address] [place] [address] Screening for malignant neoplasm of the cervix; Carcinoma in situ of endocervix Discharge Disposition: Discharge to home or self care 03/12/2025 10:50 AM CDT Office Visit [facility] [address] [place] [address] Jil Pisano MD Encounter for gynecological examination without abnormal finding (Primary Dx); Screening for malignant neoplasm of the cervix; Carcinoma in situ of endocervix from Last 3 Months Immunizations Immunization Administration Dates Next Due Flucelvax Influenza Quad 04/02/2020 Influenza, Quadrivalent, Inga l Culture-based MDCK, Preservative Free, Antibiotic Free, Intramuscular 05/14/2022,04/02/2020 Influenza, Quadrivalent, Spl it, Intramuscular 07/07/2016 Influenza, Quadrivalent, Spl it, Preservative Free, Intramuscular 04/19/2019 Influenza, Trivalent, IM (MDV) 05/08/2021,2014,07/11/2014 Influenza, Unspecified 05/06/2023(Deferr ed: Patient Refused),05/14/2022,04/18/2021 MMR 10/28/1988 Pneumococcal Conjugate PCV 13 07/11/2014 Pneumococcal Polysaccharide PPV23 07/07/2016 Tdap 08/01/2018,06/15/2008 ZOSTER Recombinant 10/02/2022,08/03/2022 Surgical History Surgery Date Site/Laterality Comments COLONOSCOPY W/ BIOPSIES AND POLYPECTOMY 09/29/2013 Colonoscopy (+) single tubular adenoma, family history colon cancer, due every 5 years, Susan LITHOTRIPSY 07/19/2010 - 08/18/2010 Lithotripsy 2010 COLONOSCOPY 10/23/2016 (-) Dr. Davis due in 5 years COLONOSCOPY 07/27/2022 (-) Dr. Davis due in 5 years family history colon cancer CERVICAL BIOPSY W/ LOOP ELECTRODE EXCISION 07/19/2023 - 07/18/2024 JOVANI 2-3 with clear margins. Medical History Medical History Date Comments Rhinitis Latex allergy, contact dermatitis Elevated blood pressure reading 11/2003 Elevated LFTs Diabetes (HCC) Menopause Kidney stone Collagenous colitis Hypertension Hypercholesteremia Traumatic closed fracture of lateral malleolus with minimal displacement 11/29/2020 Abnormal Pap smear of cervix 2023 ASC -H, HPV positive. Colpo - JOVANI 2. LEEP - JOVANI 2-3. Family History Medical History Relation Name Comments Diabetes Father Hypertension Father kidney stones Father Colon cancer Maternal Grandmother Colon cancer Mother's Brother Colon cancer Mother's Sister Diabetes Other Hypertension Other Kidney disease Other kidney stones Sister Relation Name Status Comments Father Maternal Grandmother Mother's Brother Mother's Sister Other Sister Social History Tobacco Use Types Packs/Day Years Used Date Smoking Tobacco: Never Smokeless Tobacco: Never Tobacco Cessation:Counseling Given: Not Answered Alcohol Use Standard Drinks/Week Comments No 0 (1 standard drink = 0.6 oz pur e alcohol) PHQ-2 Answer Date Recorded PHQ-2 Total Score (If total score is 3 or more points, staff should administer the PHQ-9) 0 09/13/2023 Personal Safety Answer Date Recorded Getting School Help Needed Denies 07/02 Comments No Sex and Gender Information Value Date Recorded Sex Assigned at Not on file Legal Sex Female 3:06 PM IMAGING CLERK Gender Identity Not on file Sexual Orientation Not on file Occupation Industry Job Start Date Job End Date Retired Not on file Not on file Not on file Obstetrics History Para Term AB IAB SAB Ectopic Multiple Livin g Live Births 2 2 2 0 0 2 Date Outcome GA Total Labor Labor/2nd/3rd Weight Sex Type Anes PTL Mery A1 A5 Name Clin Term Term Last Filed Vital Signs Vital Sign Reading Time Taken Comments Blood Pressure 100/68 03/12/2025 11:03 AM CDT Pulse 88 03/14/2024 11:06 AM CDT Temperature 36.3 C (97.3 F) 03/14/2024 11:06 AM CDT Respiratory Rate 18 03/14/2024 11:06 AM CDT Oxygen Saturation 97% 03/14/2024 11:06 AM CDT Inhaled Oxygen Concentration - - Weight 66.7 kg (147 lb) 03/12/2025 11:03 AM CDT Height 167.6 cm (5' 6) 03/12/2025 11:03 AM CDT Body Mass Index 23.73 03/12/2025 11:03 AM CDT Plan of Treatment Health Maintenance Due Date Last Done Comments Foot Exam 1960 Hepatitis B Screening 1980 Pneumococcal vaccine <65 (3 of 3 - PCV20 or PCV21) 07/07/2021 07/07/2016, 07/11/2014 Dilated Eye Exam 06/11/2024 06/11/2023 Hemoglobin A1C 08/27/2024 02/25/2024, 02/0 03/2024, 02/22/2023, Additional history exists Depression Screening 09/13/2024 09/13/2023, 08/24/2022, 07/08/2021, Additional history exists Albumin Creatinine Ratio, Urine 02/24/2025 02/25/2024, 08/27/2023, 02/22/2023, Additional history exists eGFR 02/24/2025 02/25/2024, 02/0 03/2024, 02/22/2023, Additional history exists Breast Cancer Screening-Mammogram 03/14/2025 03/14/2024, 03/01/2023, 02/26/2022, Additional history exists Covid-19 Vaccine (2024-08 6 season) 2025 12/06/2021, 10/09/2020, 09/17/2020 Influenza Vaccine (#1) 2025 , 05/14/2022, 05/14/2022, Additional history exists Lipid Panel 10/31/2025 10/31/2024, 0 02/2021, 07/20/2019, Additional history exists Cervical Cancer Screening 03/12/20262024, 03/12/2025, 03/10/2024, Additional history exists Regular Well Visit/Exam 18-64 03/12/2026, 03/10/2024, 09/13/2023, Additional history exists DTaP/Tdap/Td Vaccine (3 - Td or Tdap) 08/01/2028 08/01/2018, 06/15/2008 Colon Cancer Screening-Colonoscopy 07/27/2032 07/27/2022, 10/23/2016, 09/29/2013 Hepatitis C Screening Completed 12/24/2017 Colon Cancer Screening-CT Colonography Discontinued 07/27/2022, 10/23/2016, 09/29/2013 Colon Cancer Screening-DNA Stool Discontinued 07/27/2022, 10/23/2016, 09/29/2013 Colon Cancer Screening-FIT Discontinued 07/27, 10/23/2016, 09/29/2013 Colon Cancer Screening-Sigmoidoscopy Discontinued 07/27/2022, 10/23/2016, 09/29/2013 Zoster Vaccine Completed 10/02/2022, 08/03/2022 Procedures Procedure Name Priority Date/Time Associated Diagnosis Comments HIGH RISK HPV DNA DETECTION WITH GENOTYPING Routine 03/12/2025 1:35 PM CDT Screening for malignant neoplasm of the cervix Carcinoma in situ of endocervix PAP AND HIGH RISK HPV, REFLEX TO GENOTYPING Routine 03/12/2025 11:27 AM CDT Screening for malignant neoplasm of the cervix Carcinoma in situ of endocervix SCREENING MAMMOGRAM BILATERAL W YASIR Schedule Routine, Read Routine (OP Routine) 03/14/2024 10:15 AM CDT Encounter for screening mammogram for breast cancer COMPREHENSIVE METABOLIC PANEL Routine 02/25/2024 8:11 AM CDT Annual physical exam Type 2 diabetes mellitus with microalbuminuria, without long-term current use of insulin (HCC) Hypertension complicating diabetes (HCC) HEMOGLOBIN A1C Routine 02/25/2024 8:11 AM CDT Annual physical exam Type 2 diabetes mellitus with microalbuminuria, without long-term current use of insulin (HCC) Hypertension complicating diabetes (HCC) ALBUMIN CREATININE RATIO, URINE Routine 02/25/2024 8:11 AM CDT Annual physical exam Type 2 diabetes mellitus with microalbuminuria, without long-term current use of insulin (HCC) Hypertension complicating diabetes (HCC) COLONOSCOPY 07/27/2022 7:18 AM IMAGING CLERK LIPID PANEL Routine 07/26/2020 9:21 AM IMAGING CLERK Type 2 diabetes mellitus with microalbuminuria, without long-term current use of insulin (HCC) HEPATITIS C ANTIBODY Routine 12/24/2017 7:57 AM CDT Need for hepatitis C screening test from Last 3 Months or Most Recently Relevant to Health Maintenance Results * (ABNORMAL) High Risk HPV DNA Detection with Genotyping (Molecular component) (03/12/2025 1:35 PM CDT) HPV HR 16 Not Detected Not Detected [facility] Comment:Testing performed by : [facility], [address] [facility] [place]., [address] HPV HR 18 Not Detected Not Detected [facility] Comment:Testing performed by : [facility], [address] [facility] [place]., [address] HPV HR Non 16/18 Detected(A) Not Detected [facility] Comment: Interpretive Data Nucleic acid amplification for detection of high-risk Human Papilloma virus (HPV) is performed by the [employer] Deborah 6800 HPV test. This assay specifically detects HPV-16 and HPV-18 genotypes. The following HPV genotypes are detected as high-risk HPV: HPV-31, 33, 35, ,39, 45, 51, 52, 56, 58, 59, 66, and 68. This assay has been approved by the [place] Food and Drug Administration for detection of HPV in cervical specimens collected by a physician using an endocervical brush/spatula or cervical broom and placed in the ThinPrep Pap Test PreservCyt collection containers. The performance characteristics of this test have been verified by the [facility] Molecular Infectious Disease laboratory. Correlate with separately reported cytology results, as applicable. Interpretive data last revised 23 Testing performed by: [facility], [address] [place]., [address] Endocervical 03/12/2025 1:35 PM CDT 03/13/2025 3:40 PM CDT Narrative CERNER - 03/14/2025 8:54 AM CDT Clinical history and diagnosis->DX Z12.4 D06.9 2023- ASCUS,HPV POSITIVE. COLP/LEEP- JOVANI 3 Testing type->Screening Last menstrual period (date if known)->N/A Previous positive HPV history?->Yes Date of positive HPV->2023 Previous negative PAP?->No Previous atypical cytology->ASCUS Jil Pisano MD LAB BODY FLUIDS AND S TOOLS ORDERABLES Final Result Performing Organization Address City/State/[facility] Co de Phone Number [address] Department of Laboratories [place] [phone] [facility] * (ABNORMAL) Pap and High Risk HPV and Genotyping (Cytology Component) (03/12/2025 11:27 AM CDT) Thin prep (Pap test) 03/12/2025 11:27 AM CDT 03/12/2025 11:27 AM CDT Narrative PATHOLOGY - 03/16/2025 4:42 PM CDT [facility] Department of Pathology [address] [place] [id number] Final Report with Addendum Note to Patients: This report may contain a detailed description of human tissue sent by a health care provider to the laboratory for pathologic evaluation. The content of this report is essential for diagnosis and may provide important critical findings. This information may be unfamiliar to patients to review without a medical professional present. It is advised that the patient review this report in the presence of a health care provider who can answer questions and explain the details. Patient Name: ROJELIO DICIKNSON Address: [address] [place] [address] Gender: F : 1960 (Age: 64) Service: Location: N : [id number] [facility] #: [id number] Patient Type: [facility] SPECIMEN Taken: 03/12/2025 Received: 03/12/2025 Accessioned:: 03/13/2025 Reported: 03/16/2025 Physician(s): MD Jil Goodwin MD Diagnosis: SOURCE OF SPECIMEN SCREENING THIN PREP IMAGED PAP w/ HPV: STATEMENT OF ADEQUACY - Satisfactory for evaluation; endocervical/transformation zone component present GENERAL CATEGORIZATION: - Epithelial cell abnormality INTERPRETATION: - Atypical squamous cells of undetermined significance - Numerous inflammatory cells present SOFIA Russo(ASCP)Lesli Carrasco M.D. Report Electronically Reviewed and Signed Out By Lesli Carrasco M.D. 03/16/2025 16:42:42Addenda: HPV Test Interpretation (Normal-Negative for High Risk HPV) HPV HR 16- Not detected HPV HR 18-Not detected HPV HR non 16/18-Detected Interpretive Data Nucleic acid amplification for detection of high-risk Human Papilloma virus (HPV) is performed by the [employer] Deborah 6800 HPV test. This assay specifically detects HPV- 16 and HPV-18 genotypes. The following HPV genotypes are detected as high-risk HPV: HPV-31, 33, 35, 39, 45, 51, 52, 56, 58, 59, 66, and 68. This assay has been approved by the [place] Food and Drug Administration for detection of HPV in cervical specimens collected by a physician using an endocervical brush/spatula or cervical broom and placed in the ThinPrep Pap Test PreservCyt collection containers. The performance characteristics of this test have been verified by the [facility] Molecular Infectious Disease laboratory. Correlate with reported cytology results, as applicable. Interpretive data last revised 23 SOFIA Quiroz(ASCP)Report Electronically Reviewed and Signed Out By SOFIA Quiroz(ASCP) 03/15/2025 10:37:35 Specimen(s) Received: A: SCREENING THIN PREP IMAGED PAP w/ HPV Clinical History: Menstrual History: Previous Abnormal Pap: 2023 ASCUS Previous history of positive HPV: 2023 Clinical History: colp/LEEP-JOVANI 3 The Pap test is a screening test used to aid in the detection of cervical cancer and its precursors. It should not be the sole means by which malignant and premalignant lesions are diagnosed. Both false negative and false positive results may occur. It also has poor sensitivity for the detection of endometrial lesions and should not be used to evaluate suspected endometrial abnormalities. For these reasons it is most important to obtain Pap tests at regular intervals. The performance characteristics of some immunohistochemical stains, fluorescence in-situ hybridization tests and immunophenotyping by flow cytometry cited in this report (if any) were determined by the Surgical Pathology Department at [facility] as part of an ongoing ict quality assurance engineer program and in compliance with federally mandated regulations drawn from the Clinical Laboratory Improvement Act of 1988 (CLIA '88). Some of these tests rely on the use of analyte specific reagents and are subject to specific labeling requirements by the US Food and Drug Administration. Such diagnostic tests may only be performed in a facility that is certified by the Department of Health and Human Services as a high complexity laboratory under CLIA '88. The FDA has determined that such clearance or approval is not necessary. This test is used for clinical purposes. It should not be regarded as investigational or for research. Nevertheless, federal rules concerning the medical use of analyte specific reagents require that the following disclaimer be attached to the report: This test was developed and its performance characteristics determined by the Surgical Pathology Department [facility]. It has not been cleared or approved by the U. S. Food and Drug Administration. Jil Pisano MD LAB CYTOLOGY ORDERABL ES Final Result PATHOLOGY [address] [place] [address] * Screening Mammogram Bilateral W Yasir (03/14/2024 10:15 AM CDT) Anatomical Region Laterality Modality Breast Bilateral Mammography 03/14/2024 11:3 6 AM CDT Impressions 03/14/2024 11:36 AM CDT There is no mammographic evidence of malignancy. A 1 year screening mammogram is recommended. BI-RADS: 1 - Negative. The patient has been or will be contacted. The patient will be entered into a reminder system with a target due date of 1 year for her next mammogram. Electronically signed by: Maggi Garza M.D. Narrative 03/14/2024 11:36 AM CDT EXAMINATION: SCREENING MAMMOGRAM BILATERAL W YASIR ORDERING HEALTHCARE PROVIDER: MCKENZIE UGARTE HISTORY: Routine screening mammography. COMPARISON: 03/01/2023, 02/26/2022, 11/29/2020, 09/13/2019 TECHNIQUE: CC and MLO views of the bilateral breasts were obtained with digital technique using breast tomosynthesis with C view. Computer aided detection was utilized. FINDINGS: DENSITY: The tissue of the bilateral breasts is heterogeneously dense, which may obscure small masses. BREASTS: There are no suspicious masses, suspicious calcifications, or other suspicious findings in either breast. There has been no suspicious interval change. us Mckenzie Ugarte MD IMG MAMMO PROCEDURES Final Result * Albumin Creatinine Ratio, Urine (02/25/2024 8:11 AM CDT) Creatinine, ur 108 20 - 275 mg/dL [facility] Microalbumin, ur 0.6 See Note: mg/dL [facility] Comment: Reference Range: Reference Range Not established Microalbumin/creat ratio 6 <30 mg/g creat [facility] Comment: The ADA defines abnormalities in albumin excretion as follows: Albuminuria Category Result (mg/g creatinine) Normal to Mildly increased <30 Moderately increased 30-299 Severely increased > OR = 300 The ADA recommends that at least two of three specimens collected within a 3-6 month period be abnormal before considering a patient to be within a diagnostic category. Urine 02/25/2024 8:11 AM CDT 02/25/2024 8:12 AM CDT us Mckenzie Ugarte MD LAB URINE ORDERABLES Final Result [facility] [address] [address] * (ABNORMAL) Hemoglobin A1c (02/25/2024 8:11 AM CDT) Hgb A1C 6.7(H) <5.7 % of total Hgb [facility] Comment: For someone without known diabetes, a [...] A1c for diagnosis of diabetes for children. This test was performed on the Keaton deborah c503 platform. Effective 10/04/23, a change in test platforms from the Ak[employer] Education Counselor to the Keaton deborah c503 may have shifted HbA1c results compared to historical results. Based on laboratory validation testing conducted at [facility], the Keaton platform relative to the Akers platform had an average increase in HbA1c value of < or = 0.3%. This difference is within accepted variability established by the National Glycohemoglobin Standardization Program. Note that not all individuals will have had a shift in their results and direct comparisons between historical and current results for testing conducted on different platforms is not recommended. Blood 02/25/2024 8:11 AM CDT 02/25/2024 8:12 AM CDT us Mckenzie Ugarte MD LAB BLOOD ORDERABLES Final Result [facility] [address] [place] [address] * (ABNORMAL) Comprehensive metabolic panel (02/25/2024 8:11 AM CDT) Glucose 136(H) 65 - 99 mg/dL [facility] Comment: Fasting reference interval For someone without known diabetes, a glucose value >125 mg/dL indicates that they may have diabetes and this should be confirmed with a follow-up test. BUN 19 7 - 25 mg/dL [facility] Creatinine 0.72 0.50 - 1.05 mg/dL [facility] eGFR 95 > OR = 60 mL/min/1.7 3m2 [facility] BUN/creat ratio SEE NOTE: 6 - 22 (calc) [facility] Comment: Not Reported: BUN and Creatinine are within reference range. Sodium 140 135 - 146 mmol/L [facility] Potassium, pl 3.5 3.5 - 5.3 mmol/L [facility] Chloride 104 98 - 110 mmol/L [facility] CO2 26 20 - 32 mmol/L [facility] Calcium 9.5 8.6 - 10.4 mg/dL [facility] Protein, sr 6.8 6.1 - 8.1 g/dL [facility] Albumin 4.2 3.6 - 5.1 g/dL [facility] GLOBULIN 2.6 1.9 - 3.7 g/dL (calc) [facility] Alb/glob ratio 1.6 1.0 - 2.5 (calc) [facility] Bilirubin, total 0.8 0.2 - 1.2 mg/dL [facility] Alk phos 85 37 - 153 U/L [facility] AST 14 10 - 35 U/L [facility] ALT (SGPT) 13 6 - 29 U/L [facility] Blood 02/25/2024 8:11 AM CDT 02/25/2024 8:12 AM CDT us Mckenzie Ugarte MD LAB BLOOD ORDERABLES Final Result [facility] [address] [address] [facility] [place] [address] * COLONOSCOPY (07/27/2022 7:18 AM IMAGING CLERK) Anatomical Region Laterality Modality Other Narrative Procedure Note Karadaghy, Ahmad A., MD - 07/27/2022 7:18 AM CST [facility] Patient Name: Rojelio Dickinson Procedure Date: 07/27/2022 7:18 AM Date of : 1960 Admit Type: Outpatient Age: 61 Gender: Female Attending MD: Kathie Davis M.D. Room: [facility] ENDOSCOPY ROOM 1 Note Status: Finalized Patient Profile: This is a 61 year old female. History of colonpolyps. Two aunts and 1 uncle all had colon cancer Procedure: Colonoscopy Indications: Colon cancer screening in patient at increasedrisk: Family history of colorectal cancer in multiple 2nd degree relatives, High risk colon cancersurveillance: Personal history of colonic polyps, Lastcolonoscopy: October 2016 Referring MD: Mckenzie Ugarte M.D. Providers: Kathie Davis M.D. Impression: - The entire examined colon is normal. - Internal hemorrhoids. - No specimens collected. Recommendation: - Repeat colonoscopy in 5 years for screeningpurposes. Medicines: Monitored Anesthesia Care Complications: No immediate complications. Estimated Blood Loss: Estimated blood loss: none. Procedure: Pre-Anesthesia Assessment: - Prior to the procedure, a History and Physicalwas performed, and patient medications and allergieswere reviewed. The patient's tolerance of previous anesthesia was also reviewed. The risks andbenefits of the procedure and the sedation options and risks were discussed with the patient. All questions were answered, and informed consent was obtained. Prior Anticoagulants: The patient has taken noanticoagulant or antiplatelet agents. ASA Grade Assessment: II -A patient with mild systemic disease. After reviewing the risks and benefits, the patient was deemed in satisfactory condition to undergo the procedure. The benefits, risks and alternatives of theprocedure and sedation were discussed and informed consentwas obtained. All questions were answered. Please referto the signed informed consent document in the medical record. The scope was passed under direct vision.The Pediatric Colonoscope PCF-H190L [id number] was introduced through the anus and advanced to the the cecum, identified by appendiceal orifice andileocecal valve. The bowel preparation used was Miralax and bisacodyl tablets via split dose instruction. The quality of the bowel preparation was excellent.Bowel prep was administered using a split dose. Findings: The perianal and digital rectal examinations were normal. The cecum appeared normal. The colon (entire examined portion) appeared normal. No polyps and no mass lesions noted. Internal hemorrhoids were found during retroflexion. The hemorrhoids were small. Electronically signed by Kathie Davis M.D. Kathie Davis M.D. 07/27/2022 8:49:58 AM Number of Addenda: 0 Note Initiated On: 07/27/2022 7:18 AM Procedure Code(s): --- Professional --- 76239, Colonoscopy, flexible; diagnostic, including collection of specimen(s) by brushing or washing, when performed (separateprocedure) Diagnosis Code(s): --- Professional --- Z80.0, Family history of malignant neoplasm of digestive organs Z86.010, Personal history of colonic polyps K64.8, Other hemorrhoids CPT copyright 2020 [employer]. All rights reserved. The codes documented in this report are preliminary and upon mechanical fitter reviewmay be revised to meet current compliance requirements. Recognized by the [employer] for promoting quality in endoscopy Kathie Davis MD ENDOSCOPY PROCEDURES Final Result * (ABNORMAL) Lipid panel (07/26/2020 9:21 AM IMAGING CLERK) Cholesterol 139 30 - 199 mg/dL [facility] Comment: Interpretive Data Ages < or = 19 years Acceptable: <170 mg/dL Borderline high: 170-199 mg/dL High: >or= 200 mg/dL Ages > or = 20 years Desirable: <200 mg/dL Borderline high: 200-239 mg/dL High: >or= 240 mg/dL Literature References: 1. Expert Panel on Integrated Guidelines for Cardiovascular Health and Risk Reduction in Children and Adolescents. Pediatrics 2011;128:S213 2. NCEP Expert Panel. Circulation 2004;110:227 Current Interpretive Data was last revised on 2018. Triglycerides 177(H) <=149 mg/dL [facility] Comment: Interpretive Data Ages < or = 9 years Acceptable: <75 mg/dL Borderline high: 75-99 mg/dL High: >or= 100 mg/dL Ages 10 to 20 years Acceptable: <90 mg/dL Borderline high: 90-129 mg/dL High: >or= 130 mg/dL Ages > or = 20 years Desirable: <150 mg/dL Borderline high: 150-199 mg/dL High: 200-499 mg/dL Very high: >or= 499 mg/dL Literature References: 1. Expert Panel on Integrated Guidelines for Cardiovascular Health and Risk Reduction in Children and Adolescents. Pediatrics 2011;128:S213 2. NCEP Expert Panel. Circulation 2004;110:227 Current Interpretive Data was last revised on 2018. HDL 39(L) >=40 mg/dL [facility] Comment: Interpretive Data Ages < or = 19 years Acceptable: >45 mg/dL Borderline low: 40-45 mg/dL Low: <40 mg/dL Ages > or = 20 years Desirable: >or= 60 mg/dL Low: <40 mg/dL Literature References: 1. Expert Panel on Integrated Guidelines for Cardiovascular Health and Risk Reduction in Children and Adolescents. Pediatrics 2011;128:S213 2. NCEP Expert Panel. Circulation 2004;110:227 Current Interpretive Data was last revised on 2018. LDL, calculated 65 <=129 mg/dL [facility] Comment: Interpretive Data Ages < or = 19 years Acceptable: <110 mg/dL Borderline high: 110-129 mg/dL High: >or= 130 mg/dL Ages > or = 20 years Optimal: <100 mg/dL Near optimal: 100-129 mg/dL Borderline high: 130-159 mg/dL High: >160 mg/dL Literature References: 1. Expert Panel on Integrated Guidelines for Cardiovascular Health and Risk Reduction in Children and Adolescents. Pediatrics 2011;128:S213 2. NCEP Expert Panel. Circulation 2004;110:227 Current Interpretive Data was last revised on 2018. Non-HDL Cholesterol 100 mg/dL [facility] Comment: Interpretive Data Ages < or = 19 years Acceptable: <120 mg/dL Borderline high: 120-144 mg/dL High: >145 mg/dL Ages > or = 20 years When triglycerides are >200 mg/dL, Non-HDL cholesterol is a secondary target of therapy with treatment goals that are 30 mg/dL greater than the LDL cholesterol target. Literature References: 1. Expert Panel on Integrated Guidelines for Cardiovascular Health and Risk Reduction in Children and Adolescents. Pediatrics 2011;128:S213 2. NCEP Expert Panel. Circulation 2004;110:227 Current Interpretive Data was last revised on 2018. Chol/HDL ratio 4 [facility] Blood specimen (specimen) 07/26/2020 9:21 AM IMAGING CLERK 07/26/2020 1:09 PM IMAGING CLERK us Mckenzie Ugarte MD LAB BLOOD ORDERABLES Final Result [facility] [address] [address] Department [place] [address] * Hepatitis C antibody (12/24/2017 7:57 AM CDT) Hep C Ab NON-REACTI VE NON-REACTI VE [facility] [place] SIGNAL TO CUT-OFF 0.04 <1.00 [facility] [place] Blood specimen (specimen) 12/24/2017 7:57 AM CDT 12/24/2017 7:58 AM CDT Narrative [facility] - 12/25/2017 9:12 PM CDT FASTING:YES FASTING: YES Resulting Agency Comment Performing Organization Information: Site ID: [place] Name: Jeni Reese Address: [address] [address] Director: Wilfrido Hernandez D.O., MPH Mckenzie Ugarte MD LAB MICROBIOLOGY - GENERAL ORDERABLES Final Result [facility] [place] from Last 3 Months or Most Recently Relevant to Health Maintenance Insurance [facility] [place] [facility] [place] Advance Directives For more information, please contact: [phone] Documents on File Type Date Recorded Patient Pulp Mill Operator Expl anation ADVANCE DIRECTIVE 11/28/2021 LIVING KAITLIN L ADVANCE DIRECTIVE 07/08/2021 POWER OF A TTORNEY-MEDICAL ADVANCE DIRECTIVE 06/04/2020 POWER OF A TTORNEY-MEDICAL ADVANCE DIRECTIVE 09/05/2010 POWER OF A TTORNEY * Full Code (Latest Code Status on File) Date Activated Date Inactivated Comments 07/27/2022 7:14 AM 07/27/2022 1:27 PM * Full Code Date Activated Date Inactivated Comments 07/27/2022 7:13 AM 07/27/2022 7:14 AM Care Teams [employer] Relationship Specialty Start Date End Date No, Physician PCP - General 09/27/24 Kathie Davis MD Consulting Physician Gastroenterology 07/13/17 Wayne Payne DO [address] [address] Optometry 07/13/17 Jil Pisano MD [address] [address] Emergency Communications Dispatcher Obstetrics and Gynecology 07/13/17 Wally Meneses MD PhD [address] [id number] Referring Physician Endocrinology 09/13/19 Angel Justin MD [address] [address] Surgeon Orthopedic Surgery 12/06/20
--- OUTSIDE RECORDS SUMMARY | 2025-03-27 15:38 | XMS_ITS | Encounter Summary ---
Author Organization [facility] Address [address] [place] [address] Phone Care Team Providers Care Video Operator Name Role Phone Mckenzie Goodman MD Primary Care Provider [phone] Kathie Davis MD Unavailable [phone] Wayne Payne DO Unavailable [phone] Jil Pisano MD Unavailable Wally Meneses MD PhD Unavailable [phone] Angel Justin MD Unavailable [phone] No, Physician Primary Care Provider [phone] Encounter Details Date Type Department Care Team (Late st Contact Info) Description 06/14/2017 Orders Only [facility] [address] [place] [address] Mckenzie Goodman MD [address] [place] [address] Type II or unspecified type diabetes mellitus with renal manifestations, 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) (Primary Dx); Hypertension with albuminuria Social History Tobacco Use Types Packs/Day Years Used Date Smoking Tobacco: Never Smokeless Tobacco: Never Comments No Sex and Gender Information Value Date Recorded Sex Assigned at Not on file Legal Sex Female 3:06 PM TELESERVICES REPRESENTATIVE Gender Identity Not on file Sexual Orientation Not on file documented as of this encounter Plan of Treatment Not on file documented as of this encounter Procedures Procedure Name Priority Date/Time Associated Diagnosis Comments ALBUMIN CREATININE RATIO, URINE Routine 06/25/2017 9:40 AM TELESERVICES REPRESENTATIVE Type II or unspecified type diabetes mellitus with renal manifestations, 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 ) ([facility]) CHOLESTEROL, LDL, DIRECT Routine 06/25/2017 9:40 AM TELESERVICES REPRESENTATIVE Type II or unspecified type diabetes mellitus with renal manifestations, 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 ) (HCC) HEMOGLOBIN A1C Routine 06/25/2017 9:37 AM TELESERVICES REPRESENTATIVE Type II or unspecified type diabetes mellitus with renal manifestations, 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 ) (HCC) COMPREHENSIVE METABOLIC PANEL Routine 06/25/2017 9:33 AM TELESERVICES REPRESENTATIVE Hypertension with albuminuria documented in this encounter Results * Cholesterol, LDL, direct (06/25/2017 9:40 AM TELESERVICES REPRESENTATIVE) LDL, direct 42 <100 mg/dL [facility] [place] Comment: Greatly elevated Triglycerides values (>1200 mg/dL) interfere with the dLDL assay. As no Triglycerides testing was ordered, interpret results with caution. Desirable range <100 mg/dL for patients with CHD or diabetes and <70 mg/dL for diabetic patients with known heart disease. Blood specimen (specimen) 06/25/2017 9:40 AM TELESERVICES REPRESENTATIVE 06/25/2017 9:40 AM TELESERVICES REPRESENTATIVE Narrative [facility] - 06/26/2017 10:19 AM TELESERVICES REPRESENTATIVE FASTING:YES FASTING: YES Resulting Agency Comment Performing Organization Information: Site ID: [place] Name: [facility] Address: [address] [address] Director: Wilfrido Hernandez D.O., MPH us Mckenzie Goodman MD LAB BLOOD ORDERABLES Final Result [facility] [place] [place] * Microalbumin / creatinine ratio, urine, random (06/25/2017 9:40 AM TELESERVICES REPRESENTATIVE) Creatinine, ur 166 20 - 320 mg/dL [facility] Microalbumin, ur 0.8 See Note: mg/dL [facility] [place] Comment: Reference Range: Reference Range Not established Microalbumin/creat ratio 5 <30 mcg/mg creat [facility] Comment: The ADA defines abnormalities in albumin excretion as follows: Category Result (mcg/mg creatinine) Normal <30 Microalbuminuria 30-299 Clinical albuminuria > OR = 300 The ADA recommends that at least two of three specimens collected within a 3-6 month period be abnormal before considering a patient to be within a diagnostic category. Urine 06/25/2017 9:40 AM TELESERVICES REPRESENTATIVE 06/25/2017 9:40 AM TELESERVICES REPRESENTATIVE Narrative [facility] - 06/26/2017 10:19 AM TELESERVICES REPRESENTATIVE FASTING:YES FASTING: YES Resulting Agency Comment Performing Organization Information: Site ID: [place] Name: [facility] Address: [address] [place] [address] Director: Wilfrido Hernandez D.O., MPH Mckenzie Goodman MD LAB URINE ORDERABLES Final Result [facility] [place], [place] * (ABNORMAL) Hemoglobin A1c (06/25/2017 9:37 AM TELESERVICES REPRESENTATIVE) Hgb A1C 5.8(H) <5.7 % of total Hgb [facility] Comment: For someone without known diabetes, a hemoglobin A1c value between 5.7% and 6.4% is consistent with prediabetes and should be confirmed with a follow-up test. For someone with known diabetes, a value <7% indicates that their diabetes is well controlled. A1c targets should be individualized based on duration of diabetes, age, comorbid conditions, and other considerations. This assay result is consistent with an increased risk of diabetes. Currently, no consensus exists regarding use of hemoglobin A1c for diagnosis of diabetes for children. Blood specimen (specimen) 06/25/2017 9:37 AM TELESERVICES REPRESENTATIVE 06/25/2017 9:38 AM TELESERVICES REPRESENTATIVE Narrative Resulting Agency Comment Performing Organization Information: Site ID: [place] Name: [facility] Address: [address] [address] Director: Wilfrido Hernandez D.O., MPH us Mckenzie Goodman MD LAB BLOOD ORDERABLES Final Result [facility] [place] * (ABNORMAL) Comprehensive metabolic panel (06/25/2017 9:33 AM TELESERVICES REPRESENTATIVE) Pathologist [facility] Glucose 174(H) 65 - 99 mg/dL [facility] [place] Comment: Fasting reference interval For someone without known diabetes, a glucose value >125 mg/dL indicates that they may have diabetes and this should be confirmed with a follow-up test. BUN 13 7 - 25 mg/dL [facility] [place] Creatinine 0.82 0.50 - 1.05 mg/dL [facility] [place] Comment: For patients >49 years of age, the reference limit for Creatinine is approximately 13% higher for people identified as -Irish. eGFR NON-AFR. CITIZEN OF [place] 81 > OR = 60 mL/min/1 .73m2 [facility] [place] EGFR 94 > OR = 60 mL/min/1 .73m2 [facility] [place] BUN/creat ratio NOT APPLICABLE 6 - 22 (calc) [facility] [place] Sodium 142 135 - 146 mmol/L [facility] [place] Potassium, pl 3.6 3.5 - 5.3 mmol/L [facility] [place] Chloride 105 98 - 110 mmol/L [facility] [place] CO2 31 20 - 31 mmol/L [facility] [place] Calcium 9.6 8.6 - 10.4 mg/dL [facility] [place] Protein, sr 6.8 6.1 - 8.1 g/dL [facility] [place] Albumin 4.3 3.6 - 5.1 g/dL [facility] [place] GLOBULIN 2.5 1.9 - 3.7 g/dL (calc) [facility] [place] Alb/glob ratio 1.7 1.0 - 2.5 (calc) [facility] [place] Bilirubin, total 0.6 0.2 - 1.2 mg/dL [facility] [place] Alk phos 86 33 - 130 U/L [facility] [place] AST 15 10 - 35 U/L [facility] [place] ALT (SGPT) 16 6 - 29 U/L [facility] [place] Blood specimen (specimen) 06/25/2017 9:33 AM TELESERVICES REPRESENTATIVE 06/25/2017 9:34 AM TELESERVICES REPRESENTATIVE Narrative [facility] - 06/26/2017 1:51 AM TELESERVICES REPRESENTATIVE FASTING:YES FASTING: YES Resulting Agency Comment Performing Organization Information: Site ID: [place] Name: [facility] Reese Address: [address] [address] Director: Wilfrido Hernandez D.O., MPH us Mckenzie Goodman MD LAB BLOOD ORDERABLES Final Result [facility] [place] documented in this encounter Visit Diagnoses Diagnosis Type II or unspecified type diabetes mellitus with renal manifestations, 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 01/20/2020 01/20/2020 02/03/2020 3:0 5 AM CDT COVID: Suspected 06/24/2021 06/24/2021 06/24/2021 3:44 PM TELESERVICES REPRESENTATIVE COVID: Suspected 10/06/2022 10/06/2022 10/06/2022 11:18 AM CDT documented as of this encounter Care Teams Video Operator Relationship Specialty Start Date End Date Mckenzie Goodman MD PCP - General 10/23/16 07/26/24 No, Physician PCP - General 09/27/24 Kathie Davis MD Consulting Physician Gastroenterology 07/13/17 Wayne Payne DO [address] [address] Optometry 07/13/17 Jil Pisano MD [address] [address] [employer] Obstetrics and Gynecology 07/13/17 Wally Meneses MD PhD [address] [address] Referring Physician Endocrinology 09/13/19 Angel Justin MD [address] [address] Surgeon Orthopedic Surgery 12/06/20 documented as of this encounter
== END 2025-03-27 13:56 | disposition home or self-care (01) ==
LOC: CHSIMG 13:58
PROVIDERS: PCP Internal Medicine; Visit Provider Internal Medicine
DX: Z12.31 Encounter for screening mammogram for malignant neoplasm of breast (principal); R92.8 Other abnormal and inconclusive findings on diagnostic imaging of breast
CPT/HCPCS: 77063; 77067

== ENCOUNTER 2025-04-24 09:25 | Outpatient (CLI) | payer BC, SELFPAY ==
--- NOTE | ~2025-04-24 | MMUS_ITS ---
EXAMINATION: MM diagnostic niko LT w seven, US breast LT limited INDICATION: 64-year old female; BI-RADS 0, callback from screening to evaluate left breast asymmetry. COMPARISON: 03/27/2025 TECHNIQUE: Digital breast tomosynthesis True lateral and spot compression CC and MLO views of the LEFT breast were obtained with computer-aided detection to assist in interpretation of the study. FINDINGS: There are scattered areas of fibroglandular density. The asymmetry of concern in the Superior left breast effaces on spot compression views compatible with superimposition of fibroglandular tissue. LEFT BREAST ULTRASOUND FINDINGS: Targeted evaluation of the area of concern was completed. No suspicious solid or cystic mass seen. IMPRESSION: Left breast asymmetry of concern represents superimposition of fibroglandular tissue. RECOMMENDATION: Annual screening mammography in 12 months. BI-RADS 2, BENIGN Reviewed, dictated and finalized at location B. IMPRESSION: Left breast asymmetry of concern represents superimposition of fibroglandular t issue. RECOMMENDATION: Annual screening mammography in 12 months. BI-RADS 2, BENIGN
--- OUTSIDE RECORDS SUMMARY | 2025-04-24 09:59 | XMS_ITS | Encounter Summary ---
Author Organization [facility] Address [address] [place] [address] Phone Care Team Providers Care Demo Event Specialist Name Role Phone Mckenzie Goodman MD Primary Care Provider [phone] Kathie Davis MD Unavailable [phone] Wayne Payne DO Unavailable Jil Pisano MD Unavailable [phone] Wally Meneses MD PhD Unavailable Angel Justin MD Unavailable No, Physician Primary Care Provider [phone] Encounter Details Date Type Department Care Team (Late st Contact Info) Description 06/14/2017 Orders Only [facility] [address] [place] [address] Mckenzie Goodman MD [address] [place] [address] Type II or unspecified type diabetes mellitus with renal manifestations, 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) (Primary Dx); Hypertension with albuminuria Social History Tobacco Use Types Packs/Day Years Used Date Smoking Tobacco: Never Smokeless Tobacco: Never Comments No Sex and Gender Information Value Date Recorded Sex Assigned at Not on file Legal Sex Female 3:06 PM MANAGER BENEFIT Gender Identity Not on file Sexual Orientation Not on file documented as of this encounter Plan of Treatment Not on file documented as of this encounter Procedures Procedure Name Priority Date/Time Associated Diagnosis Comments ALBUMIN CREATININE RATIO, URINE Routine 06/25/2017 9:40 AM MANAGER BENEFIT Type II or unspecified type diabetes mellitus with renal manifestations, 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 ) ([facility]) CHOLESTEROL, LDL, DIRECT Routine 06/25/2017 9:40 AM MANAGER BENEFIT Type II or unspecified type diabetes mellitus with renal manifestations, 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 ) (HCC) HEMOGLOBIN A1C Routine 06/25/2017 9:37 AM MANAGER BENEFIT Type II or unspecified type diabetes mellitus with renal manifestations, 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 ) (HCC) COMPREHENSIVE METABOLIC PANEL Routine 06/25/2017 9:33 AM MANAGER BENEFIT Hypertension with albuminuria documented in this encounter Results * Cholesterol, LDL, direct (06/25/2017 9:40 AM MANAGER BENEFIT) LDL, direct 42 <100 mg/dL nfon - [place] Comment: Greatly elevated Triglycerides values (>1200 mg/dL) interfere with the dLDL assay. As no Triglycerides testing was ordered, interpret results with caution. Desirable range <100 mg/dL for patients with CHD or diabetes and <70 mg/dL for diabetic patients with known heart disease. Blood specimen (specimen) 06/25/2017 9:40 AM MANAGER BENEFIT 06/25/2017 9:40 AM MANAGER BENEFIT Narrative [facility] - 06/26/2017 10:19 AM MANAGER BENEFIT FASTING:YES FASTING: YES Resulting Agency Comment Performing Organization Information: Site ID: [place] Name: [facility] Address: [address] [address] Director: Wilfrido Hernandez D.O., MPH us Mckenzie Goodman MD LAB BLOOD ORDERABLES Final Result [facility] nfon - [place], [place] * Microalbumin / creatinine ratio, urine, random (06/25/2017 9:40 AM MANAGER BENEFIT) Creatinine, ur 166 20 - 320 mg/dL [facility] Microalbumin, ur 0.8 See Note: mg/dL [facility] [place] Comment: Reference Range: Reference Range Not established Microalbumin/creat ratio 5 <30 mcg/mg creat [facility] Comment: The ADA defines abnormalities in albumin excretion as follows: Category Result (mcg/mg creatinine) Normal <30 Microalbuminuria 30-299 Clinical albuminuria > OR = 300 The ADA recommends that at least two of three specimens collected within a 3-6 month period be abnormal before considering a patient to be within a diagnostic category. Urine 06/25/2017 9:40 AM MANAGER BENEFIT 06/25/2017 9:40 AM MANAGER BENEFIT Narrative [facility] - 06/26/2017 10:19 AM MANAGER BENEFIT FASTING:YES FASTING: YES Resulting Agency Comment Performing Organization Information: Site ID: [place] Name: [facility] Address: [address] [place] [address] Director: Wilfrido Hernandez D.O., MPH Mckenzie Goodman MD LAB URINE ORDERABLES Final Result [facility] nfon [place], [place] * (ABNORMAL) Hemoglobin A1c (06/25/2017 9:37 AM MANAGER BENEFIT) Hgb A1C 5.8(H) <5.7 % of total Hgb [facility] Comment: For someone without known diabetes, a [...] children. Blood specimen (specimen) 06/25/2017 9:37 AM MANAGER BENEFIT 06/25/2017 9:38 AM MANAGER BENEFIT Narrative Resulting Agency Comment Performing Organization Information: Site ID: [place] Name: [facility] Address: [address] [address] Director: Wilfrido Hernandez D.O., MPH us Mckenzie Goodman MD LAB BLOOD ORDERABLES Final Result [facility] - [place] * (ABNORMAL) Comprehensive metabolic panel (06/25/2017 9:33 AM MANAGER BENEFIT) Pathologist [facility] Glucose 174(H) 65 - 99 mg/dL [facility] - [place] Comment: Fasting reference interval [...] approximately 13% higher for people identified as -Latvian. eGFR NON-AFR. CAMBODIAN 81 > OR = 60 mL/min/1 .73m2 [...] [place] Blood specimen (specimen) 06/25/2017 9:33 AM MANAGER BENEFIT 06/25/2017 9:34 AM MANAGER BENEFIT Narrative [facility] - 06/26/2017 1:51 AM MANAGER BENEFIT FASTING:YES FASTING: YES Resulting Agency Comment Performing Organization Information: Site ID: [place] Name: Marko Reese Address: [address] [address] Director: Wilfrido Hernandez D.O., MPH us Mckenzie [...] COVID: Suspected 06/24/2021 06/24/2021 06/24/2021 3:44 PM MANAGER BENEFIT COVID: Suspected 10/06/2022 10/06/2022 10/06/2022 11:18 AM CDT documented as of this encounter Care Teams Demo Event Specialist Relationship Specialty Start Date End Date Mckenzie Goodman MD PCP - General 10/23/16 07/26/24 No, Physician PCP - General 09/27/24 Kathie Davis MD Consulting Physician Gastroenterology 07/13/17 Wayne Payne DO [address] [place] [address] Optometry 07/13/17 Jil Pisano MD [address] [address] Board Member Obstetrics and Gynecology 07/13/17 Wally Meneses MD PhD [address] [address] Referring Physician Endocrinology 09/13/19 Angel Justin MD [address] [address] Surgeon Orthopedic Surgery 12/06/20 documented as of this encounter
--- OUTSIDE RECORDS SUMMARY | 2025-04-24 09:59 | XMS_ITS | Encounter Summary ---
Author Organization [facility] Address [address] [place] [address] Phone Care Team Providers Care Color Checker Name Role Phone Mckenzie Goodman MD Primary Care Provider [phone] Kathie Davis MD Unavailable [phone] Wayne Payne DO Unavailable Jil Pisano MD Unavailable [phone] Wally Meneses MD PhD Unavailable Angel Justin MD Unavailable No, Physician Primary Care Provider [phone] Encounter Details Date Type Department Care Team (Late st Contact Info) Description 02/04/2017 Orders Only [facility] [address] [place] [address] Mckenzie Goodman MD [address] [place] [address] Unspecified vitamin D deficiency (Primary Dx); Diabetes mellitus without complication (HCC); Other B-complex deficiencies Social History Tobacco Use Types Packs/Day Years Used Date Smoking Tobacco: Never Comments Unknown Sex and Gender Information Value Date Recorded Sex Assigned at Not on file Legal Sex Female 3:06 PM BRICK BAKER Gender Identity Not on file Sexual Orientation [...] Site ID: [place] Name: [facility]i Reese Address: [address] [place] [address] Director: Wilfrido Hernandez D.O., MPH us Mckenzie Goodman MD LAB URINE ORDERABLES Final Result Performing Organization Address [facility] Co de Phone Number [place] * Creatinine, urine, random (02/25/2017 7:38 AM CDT) Creatinine, ur 255 20 - 320 mg/dL [facility] - [place] 02/25/2017 7:38 AM CDT 02/25/2017 7:38 AM CDT Narrative [facility] - 02/26/2017 11:55 AM CDT FASTING:YES Resulting Agency Comment Performing Organization Information: Site ID: [place] Name: Jeni Reese Address: [address] [place] [address] Director: Wilfrido Hernandez D.O., MPH us Mckenzie Goodman MD LAB URINE ORDERABLES Final Result Performing Organization Address [facility] Phone Number [place] * (ABNORMAL) Comprehensive metabolic panel (02/25/2017 7:38 AM CDT) Glucose 285(H) 65 - 99 mg/dL [facility] - [place] Comment: Fasting reference interval For someone without [...] for people identified as -Irish. eGFR NON-AFR. TURKISH 81 > OR = 60 mL/min/1 .73m2 [...] Bilirubin, total 0.8 0.2 - 1.2 mg/dL [facility] - [place] Alk phos 110 33 - 130 U/L [facility] [place] AST 21 10 - 35 U/L [facility] [place] ALT (SGPT) 28 6 - 29 U/L [facility] [place] Blood specimen (specimen) 02/25/2017 7:38 AM CDT 02/25/2017 7:38 AM CDT Narrative [facility] - 02/26/2017 11:55 AM CDT FASTING:YES Resulting Agency Comment Performing Organization Information: Site ID: [place] Name: Jeni Reese Address: [address] [place] [address] [place] [address] Director: Wilfrido Hernandez D.O., MPH Mckenzie Goodman MD LAB BLOOD ORDERABLES Final Result JENI [facility] - [place] * Cholesterol, LDL, direct (02/25/2017 7:38 AM CDT) LDL, direct 35 <130 mg/dL [facility] - [place] Comment: Greatly elevated [...] Site ID: [place] Name: Jeni Reese Address: [address] [address] Director: Wilfrido Hernandez D.O., MPH us Mckenzie Goodman MD LAB BLOOD ORDERABLES Final Result Performing Organization Address [facility] Co de Phone Number [email or web address] - [place] * (ABNORMAL) Hemoglobin A1c (02/25/2017 7:38 AM CDT) Hgb A1C 7.4(H) <5.7 % of total Hgb [facility] Comment: For someone without known diabetes, a [...] Performing Organization Information: Site ID: [place] Name: [facility] Address: [address] [place] [address] [place] [address] Director: Wilfrido Hernandez D.O., MPH us Mckenzie Goodman MD LAB BLOOD ORDERABLES Final Result Performing Organization Address City/[facility] Co de Phone Number JENI [facility] [place] Laureano * Vitamin D 25 hydroxy (02/25/2017 7:38 AM CDT) Vitamin D 25-OH 33 30 - 100 ng/mL [facility] Comment: Vitamin D Status 25-OH Vitamin D: Deficiency: <20 ng/mL Insufficiency: 20 - 29 ng/mL Optimal: > or = 30 ng/mL For 25-OH Vitamin D testing on patients on D2-supplementation and patients for whom quantitation of D2 and D3 fractions is required, the QuestAssureD(TM) 25-OH VIT D, (D2,D3), LC/MS/MS is recommended: order code 85288 (patients >2yrs). For more information on this test, go to: http://education.Fotolia/faq/ATD819 (This link is being provided for informational/educational purposes only.) Blood specimen (specimen) 02/25/2017 7:38 AM CDT 02/25/2017 7:38 AM CDT Narrative [facility] - 02/26/2017 11:55 AM CDT FASTING:YES Resulting Agency Comment Performing Organization Information: Site ID: [place] Name: Jeni Reese Address: [address] [place] [address] Director: Wilfrido Hernandez D.O., MPH Mckenzie Goodman MD LAB BLOOD ORDERABLES Final Result Performing Organization Address City/[facility] Co de Phone Number [place] * Vitamin B12 (02/25/2017 7:38 AM CDT) Vitamin B12 846 200 - 1,100 pg/mL JENI RIOS Yadira [place] Blood specimen (specimen) 02/25/2017 7:38 AM CDT 02/25/2017 7:38 AM CDT Narrative [facility] - 02/26/2017 11:55 AM CDT FASTING:YES Resulting Agency Comment Performing Organization Information: Site ID: [place] Name: [facility] Address: [address] [place] [address] Director: Wilfrido Hernandez D.O., MPH Mckenzie Goodman MD LAB BLOOD ORDERABLES Final Result Performing Organization Address City/[facility] Co de Phone Number [place] [...] COVID: Suspected 06/24/2021 06/24/2021 06/24/2021 3:44 PM BRICK BAKER COVID: Suspected 10/06/2022 10/06/2022 10/06/2022 11:18 AM CDT documented as of this encounter Care Teams Color Checker Relationship Specialty Start Date End Date Mckenzie Goodman MD PCP - General 10/23/16 07/26/24 No, Physician PCP - General 09/27/24 Kathie Davis MD Consulting Physician Gastroenterology 07/13/17 Wayne Payne DO [address] [place] [address] Optometry 07/13/17 Jil Pisano MD [address] [address] Type Photography Supervisor Obstetrics and Gynecology 07/13/17 Wally Meneses MD PhD [address] [address] Referring Physician Endocrinology 09/13/19 Angel Justin MD [address] [place] [address] Surgeon Orthopedic Surgery 12/06/20 documented as of this encounter
--- OUTSIDE RECORDS SUMMARY | 2025-04-24 09:59 | XMS_ITS | Encounter Summary ---
Author Organization [facility] Healthcare Address [address] [place] [address] Care Team Providers Care Marine Farmer Name Role Phone Kathie Davis MD Unavailable [phone] Wayne Payne DO Unavailable [phone] Jil Pisano MD Unavailable Wally Meneses MD PhD Unavailable Angel Justin MD Unavailable [phone] No, Physician Primary Care Provider Encounter Details Date Type Department Care Team (Late st Contact Info) Description 04/16/2025 Results Follow-Up [facility] [address] [place] [address] Jil Pisano MD [address] [place] [address] Surgical pathology Social History Tobacco Use Types Packs/Day Years [...] on file Legal Sex Female 3:06 PM ACCOUNT DEVELOPMENT REPRESENTATIVE Gender Identity Not on file Sexual Orientation Not on file Occupation Industry Job Start Date Job End Date Retired Not on file Not on file Not on file documented as of this encounter Plan of Treatment Not on file documented as of this encounter Visit Diagnoses Not on filedocumented in this encounter Care Teams Marine Farmer Relationship Specialty Start Date End Date No, Physician PCP - General 09/27/24 Kathie Davis MD Consulting Physician Gastroenterology 07/13/17 Wayne Payne DO [address] [place] [place] [address] Optometry 07/13/17 Jil Pisano MD [address] [place] [address] Monitoring Manager Obstetrics and Gynecology 07/13/17 Wally Meneses MD PhD [address] [place] [address] Referring Physician Endocrinology 09/13/19 Angel Justin MD [address] [address] Surgeon Orthopedic Surgery 12/06/20 documented as of this encounter
--- OUTSIDE RECORDS SUMMARY | 2025-04-24 09:59 | XMS_ITS | Clinical Summary ---
Author Organization [facility] Address [address] [place] [address] Care Team Providers Care Tailings Dam Pumper Name Role Phone Justina Berry MD Primary Care Provider [phone] Allergies Active Allergy Reactions Criticality Noted Date [...] at bedtime. 90 tablet 1 5 Active metFORMIN ER (GLUCOPHAGE-XR) 500 MG 24 hr tabletIndicatio ns:Type 2 diabetes mellitus with hyperglycemia, without long-term current use of insulin (CMS/HCC HHS/HCC) Take 2 tablets (1,000 mg total) by mouth daily. 90 tablet 5 Active indapamide (LOZOL) 1.25 MG tabletIndicatio ns:Hypertension associated with diabetes (CMS/HCC HHS/HCC) Take 1 tablet (1.25 mg total) by mouth daily. 30 tablet 2 5 Active indapamide (LOZOL) 1.25 MG tabletIndicatio ns:Hypertension associated with diabetes ([facility]/HCC [facility]) Take 1 tablet (1.25 mg total) by mouth daily. 30 tablet 2 5 025 Discontinued Active Problems No known active problems Encounters Date Type Department Care Team Description 04/19/2025 [facility]phone [facility] [address] [facility] [address] [place], [place] [id number] Justina Berry MD Pre Appt Labs 03/27/2025 [facility] INFO SRVCS Scanned, Doc Med Group Mammogram (SCAN) 03/27/2025 Telephone [facility] [address] [facility] [address] [place], [place] [address] Justina Berry MD Follow Up Call from Last 3 Months Immunizations Immunization Administration Dates Next Due Fluzone [...] st Contact Info) Description 05/23/2025 9:00 AM DURABLE MEDICAL EQUIPMENT TECHNICIAN Office Visit [facility] [place] [address] [address] [place], [place] [id number] Justina Berry MD [address] [place] [address] Health Maintenance Due Date Last Done Comments Cervical Cancer Screening Pap with HPV Testing (Age 30 to 64) Every 5 Years 1992 COVID-19 Vaccine ( season) 2025 12/06/2021, 10/09/2020, 09/17/2020 Influenza Adult (#1) 2025 05/18/2024, 05/14/2022, 05/08/2021, Additional history exists Hemoglobin A1C 05/02/2025 10/31/2024, 08/0 03/2024, 08/27/2023, Additional history exists Annual Physical 05/18/2025 05/18/2024 Lipid Panel 10/31/2025 10/31/2024 Kidney Health Evaluation 11/15/2025 11/15/2024 Diabetes: Retinopathy Eye Exam 06/13/2026 06/13/2024 Cervical Cancer Screening Pap Smear (Age 30 to 64) Every 3 Years 03/10/2027 03/10/2024 Cervical Cancer Screening with HPV 03/10/2027 Mammogram Screening 03/27/2027 03/27/2025, 03/27/2025, 03/14/2024, Additional history exists DTaP, Tdap and Td Vaccines (3 - Td or Tdap) 08/01/2028 08/01/2018, 06/15/2008 Colorectal Cancer Screening Colonoscopy (10 Years) 07/27/2032 07/27/2022 RSV Immunization or 60+ Years (1 - 1-dose 75+ series) 2037 Zoster Vaccines Completed 10/02/2022, 08/03/2022 Hepatitis C Completed 10/31/2024 PHQ-2 (Physician [place]) Completed 11/15/2024 Pneumococcal Vaccine: 50+ Years Completed [...] Procedure Name Priority Date/Time Associated Diagnosis Comments MAMMOGRAM GENERIC (SCAN ORDER) 03/27/2025 MG SCREENING W CARL FLOR[place] DIGI Routine 03/27/2025 12:00 AM CDT Encounter for screening mammogram for malignant neoplasm of breast HEPATITIS C ANTIBODY W/RFX TO HCV RNA Routine 10/31/2024 8:08 AM CDT LIPID PANEL Routine 10/31/2024 8:08 AM CDT HEMOGLOBIN, GLYCOSYLATED Routine 10/31/2024 8:08 AM CDT DIABETIC RETINOPATHY EXAM (NEGATIVE)(SCAN ORDER) Routine 06/13/2024 COLONOSCOPY GENERIC (SCAN ORDER) 07/27/2022 from Last 3 Months or Most Recently Relevant to Health Maintenance Results * MG SCREENING W CARL [place]OR[place] DIGI (03/27/2025 12:00 AM CDT) Anatomical Region Laterality Modality Breast Bilateral Mammography 03/27/2025 Justina Berry MD MAMMO Final Result * MAMMOGRAM GENERIC (SCAN ORDER) (03/27/2025) Anatomical Region Laterality Modality Other 03/27/2025 Doc Med Group Scanned SCANNING Final Resu lt * HEPATITIS C ANTIBODY W/RFX TO HCV RNA (10/31/2024 8:08 AM CDT) Pathologist [facility] HEPATITIS C AB NON-REACT JOSE NON-REACT JOSE [facility] Comment: HCV antibody was non-reactive. There is no laboratory evidence of HCV infection. In most cases, no further action is required. However, if recent HCV exposure is suspected, a test for HCV RNA (test code 58996) is suggested. For additional information please refer to http://education.opendorse/faq/ULR76h5 (This link is being provided for informational/ educational purposes only.) 10/31/2024 8:08 AM CDT 10/31/2024 8:09 AM CDT Narrative Resulting Agency Comment Performing Organization Information: Site ID: [place] Name: [facility] Address: [address] [place] [address] Director: Korina Wolff MD Justina Berry MD LABORATORY Final Result [facility] Yadira GILMA CHUN [facility] [address] [place] [address], * (ABNORMAL) HEMOGLOBIN, GLYCOSYLATED (10/31/2024 8:08 AM CDT) Pathologist [facility] HGB A1C 7.1(H) <5.7 % of total Hgb [facility] [place] Comment: For someone without known diabetes, [...] Agency Comment Performing Organization Information: Site ID: [place] Name: [facility] Address: [facility] [place] [address] Director: Korina Wolff Justina Berry MD LABORATORY Final Result [facility] Y[facility]ira GILMA ORDERS [place] [address] [place] [address], * (ABNORMAL) LIPID PANEL (10/31/2024 8:08 AM CDT) [facility] Signature CHOLESTEROL 142 <200 mg/dL [facility] HDL 37(L) > OR = 50 mg/dL [facility] TRIGLYCERIDES 244(H) <150 mg/dL [facility] Comment: If a non-fasting specimen was collected, consider repeat triglyceride testing on a fasting specimen if clinically indicated. Wandy et al. J. of Clin. Lipidol. 2015;9:129-169. LDL (CALCULATED) 71 mg/dL (calc) [facility] Comment: Reference range: <100 Desirable range <100 mg/dL for primary prevention; <70 mg/dL for patients with CHD or diabetic patients with > or = 2 CHD risk factors. LDL-C is now calculated using the Calos-Joana calculation, which is a validated novel method providing better accuracy than the Friedewald equation in the estimation of LDL-C. Calos TREVIZO et al. BRANDON. 2013;310(19): 8557-7324 (http://education.Cynvenio Biosystems.Nexthink/faq/WLW500) CHOL/HDL RATIO 3.8 <5.0 (calc) [facility] NON HDL CHOLESTEROL 105 <130 mg/dL (calc) [facility] Comment: For patients with diabetes plus 1 major ASCVD risk factor, treating to a non-HDL-C goal of <100 mg/dL (LDL-C of <70 mg/dL) is considered a therapeutic option. 10/31/2024 8:08 AM CDT 10/31/2024 8:09 AM CDT Narrative Resulting Agency Comment Performing Organization Information: Site ID: [place] Name: [facility] Hugh Address: [address] [place] [address] Director: Korina Wolff MD Justina Berry MD LABORATORY Final Result [facility] KENYETTA MCCOLLUM [facility] [address] [place] [address], * DIABETIC RETINOPATHY EXAM (NEGATIVE) (06/13/2024) [employer] Scanned SCANNING Final Resu lt Performing Organization Address City/[facility]/ZIP Co de Phone Number [facility] ONBASE * COLONOSCOPY GENERIC (SCAN ORDER) (07/27/2022) 07/27/2022 [employer] [facility] Scanned SCANNING Final Resu lt from Last 3 Months or Most Recently Relevant to Health Maintenance Insurance [facility] Care Teams Tailings Dam Pumper Relationship Specialty Start Date End Date Justina Berry MD [address] [address] PCP - General INTERNAL MEDICINE 03/16/24
--- OUTSIDE RECORDS SUMMARY | 2025-04-24 09:59 | XMS_ITS | Clinical Summary ---
Author Organization [facility] Address [address] [place] [address] Care Team Providers Care Information Technology Teacher Name Role Phone Unavailable Primary Care Provider [...] as needed 42 Capsule 4 3:46 PM PHYTOPATHOLOGY TEACHER 07/23/19 24 Active promethazine-d extromethorpha n (PHENERGAN-DM) 6.25-15 mg/5 mL syrup Take 5 mL by mouth every 4 (four) hours as needed for cough 120 mL 4 2:35 PM PHYTOPATHOLOGY TEACHER 07/29/19 24 Active blood sugar diagnostic (OneTouch Verio test strips) Strip Use to test glucose levels twice daily 200 Strip 3 09/13/19 24 Active fluticasone propionate (FLONASE) 50 mcg/spray [place], Suspension nasal inhaler Administer 2 sprays in each nostril daily 16 Gram 11 09/13/19 24 Active traZODone (DESYREL) 50 mg tablet Take 1 tablet (50 mg total) by mouth nightly 90 Tablet 1 09/13/19 24 Active ipratropium bromide (ATROVENT) 21 mcg (0.03 %) [place], Non-Aerosol Administer 2 sprays into each nostril [...] 140/80) 90 Tablet 1 4 2:17 PM PHYTOPATHOLOGY TEACHER 03/14/20 24 Active glimepiride (AMARYL) 1 mg tablet Take 0.5-1 Tablets (0.5-1 mg) by mouth daily in the morning before breakfast. Adjusting to keep fasting blood sugar below 120. 90 Tablet 1 5 3:16 PM CDT 03/14/20 24 Active fluticasone propionate (FLONASE) 50 mcg/spray [place], Suspension nasal inhaler Administer 2 Sprays in [...] daily. 90 Tablet 1 4 2:17 PM PHYTOPATHOLOGY TEACHER 03/14/20 Active atorvastatin (LIPITOR) 20 mg tablet Take 1 Tablet (20 mg) by mouth daily. 90 Tablet 1 5 4:28 PM PHYTOPATHOLOGY TEACHER 03/14/20 24 Active atorvastatin (LIPITOR) 20 mg [...] 05/18/20 Active fluticasone propionate (FLONASE) 50 mcg/spray [place], Suspension nasal inhaler ADMINISTER 2 SPRAYS IN EACH NOSTRIL DAILY. 16 Gram 5 05/18/20 Active glimepiride (AMARYL) 1 mg tablet Take 0.5-1 Tablets (0.5-1 mg) by mouth daily. 90 Tablet 1 5 3:15 PM PHYTOPATHOLOGY TEACHER 05/18/20 Active ipratropium bromide (ATROVENT) 21 mcg (0.03 %) [place], Non-Aerosol ADMINISTER 2 sprays by nasal route 2 (two) times daily. 30 mL 1 05/18/20 Active metFORMIN (GLUCOPHAGE XR) 500 mg Extended Release 24 hour tablet Take 2 tablets (1,000 mg total) by mouth daily. 90 Tablet 1 5 4:28 PM PHYTOPATHOLOGY TEACHER 05/18/20 24 Active cyanocobalamin (Vitamin B-12) 1,000 mcg Tablet Take 1 tablet (1,000 mcg total) by mouth daily. 90 Tablet 1 05/18/20 24 Active traZODone (DESYREL) 50 mg tablet Take 1 Tablet (50 mg) by mouth nightly as needed for sleep. 90 Tablet 1 5 2:21 PM CDT 05/18/20 Active metroNIDAZOLE (FLAGYL) 500 mg tablet Take [...] 25 Active fluticasone propionate (FLONASE) 50 mcg/spray [place], Suspension nasal inhaler Administer 2 sprays in each nostril once daily. 16 Gram 5 11/16/19 25 Active glimepiride (AMARYL) 1 mg tablet Take 0.5-1 tablet (0.5-1 mg total) by mouth daily. 90 Tablet 1 5 2:21 PM CDT 11/16/19 25 Active ipratropium bromide (ATROVENT) 21 mcg (0.03 %) [place], Non-Aerosol Administer 2 sprays in each nostril 2 (two) times daily. 30 mL 1 11/16/19 25 Active traZODone (DESYREL) 50 mg tablet Take 1 tablet (50 mg total) by mouth nightly as needed for Sleep. 90 Tablet 1 11/16/19 25 Active cyanocobalamin (Vitamin B-12) 1,000 mcg Tablet Take 1 tablet (1,000 mcg total) by mouth daily. 90 Tablet 1 11/16/19 25 Active metFORMIN (GLUCOPHAGE XR) 500 mg Extended Release 24 hour tablet Take 2 tablets (1,000 mg total) by mouth daily. 90 Tablet 5 12:43 PM CDT 03/14/20 25 Active indapamide (LOZOL) 1.25 mg tablet Take 1 tablet (1.25 mg total) by mouth daily. 30 Tablet 2 5 2:21 PM CDT 03/29/20 25 Active indapamide (LOZOL) 1.25 mg tablet Take 1 tablet (1.25 mg total) by mouth daily. 30 Tablet 2 9:20 AM CDT 12/27/19 25 025 Discontinued Encounters Date Type Department [...]
--- OUTSIDE RECORDS SUMMARY | 2025-04-24 09:59 | XMS_ITS | Encounter Summary ---
Author Organization [facility] Address [address] [place] [address] Care Team Providers Care Contact Finger Assembler Name Role Phone Justina Berry MD Primary Care Provider [phone] Encounter Details Date Type Department Care Team (Latest Contact Info) Description 08/27/2024 [facility] Message Enc [address] [address] Justina Berry MD [address] [place] [address] [facility] medicine Social History Tobacco Use [...] st Contact Info) Description 05/23/2025 9:00 AM PUBLIC RELATIONS PLAYER [facility] [place] [address] Justina Berry MD [address] [address] documented as of this encounter Visit Diagnoses Not on filedocumented in this encounter Additional Health Concerns Assessment Noted Time PHQ-9 Depression Total Score: 0 05/18/20 8:51 AM CDT documented as of this encounter Care Teams Contact Finger Assembler Relationship Specialty Start Date End Date Justina Berry MD [facility] [address] [address] PCP - General INTERNAL MEDICINE 03/16/24 documented as of this encounter
--- OUTSIDE RECORDS SUMMARY | 2025-04-24 09:59 | XMS_ITS | Clinical Summary ---
Author Organization [facility] Address [address] [place] [address] Care Team Providers Care Back Grinder Name Role Phone Kathie Davis MD Unavailable [phone] Wayne Payne DO Unavailable [phone] Jil Pisano MD Unavailable Wally Meneses MD PhD Unavailable [phone] Angel Justin MD Unavailable [phone] No, Physician Primary Care Provider [phone] Allergies Active Allergy Reactions Criticality Noted Date [...] Active Additional Information Patient not taking.Reported on 04/09/2025 blood glucose diagnostic (OneTouch Verio test strips) stripIndications:T ype 2 diabetes mellitus with microalbuminuria, without long-term current use of insulin ([facility]) Use to test glucose levels twice daily E11.9 200 strip 3 09/13/19 Active atorvastatin (LIPITOR) 20 mg tabletIndications: Type 2 diabetes mellitus with microalbuminuria, without long-term current use of insulin ([facility]),Multiple-typ e hyperlipidemia Take 1 tablet (20 mg total) by mouth daily 90 tablet 1 03/14/20 Active benazepriL (LOTENSIN) 20 mg tabletIndications: Hypertension complicating diabetes (HCC) Take 1 tablet (20 mg total) by mouth daily 90 tablet 1 03/14/20 Active empagliflozin (Jardiance) 25 mg tabletIndications: Type 2 diabetes mellitus with microalbuminuria, without long-term current use of insulin ([facility]) Take 1 tablet (25 mg total) by mouth daily 90 tablet 2 03/14/20 Active famotidine (PEPCID) 20 mg tabletIndications: Gastroesophageal reflux disease without esophagitis Take 1 tablet (20 mg total) by mouth 2 (two) times a day as needed for heartburn 180 tablet 1 03/14/20 Active Additional Information Patient not taking.Reported on 04/09/2025 fluticasone propionate (FLONASE) 50 mcg/actuation nasal sprayIndications:C hronic rhinitis Administer 2 sprays into each nostril daily 1 each 03/14/20 Active Additional Information Patient not taking.Reported on 04/09/2025 glimepiride (AMARYL) 1 mg tabletIndications: type 2 diabetes mellitus Take 0.5-1 tablets (0.5-1 mg total) by mouth daily before breakfast Adjusting to keep fasting blood sugar below 120 90 tablet 1 03/14/20 Active Additional Information Patient not taking.Reported on 04/09/2025 indapamide (LOZOL) 1.25 mg tabletIndications: Hypertension complicating diabetes ([facility]),History of kidney stones Take 1 tablet [...] Active Additional Information Patient not taking.Reported on 04/09/2025 cyanocobalamin (Vitamin B-12) 1,000 mcg tabletIndications: Prevention of Vitamin B12 Deficiency Take 1 tablet (1,000 mcg total) by mouth daily 03/14/20 Active Additional Information Patient not taking.Reported on 04/09/2025 Active Problems Problem Noted Date Diagnosed Date High grade squamous intraepi thelial lesion (HGSIL), grade 3 JOVANI, on biopsy of cervix 05/26/2024 Overview (05/28/2024): New diagnosis June 07, 2024 Dr. Pisano managing Viral URI with cough 07/29/2023 Assessment & Plan (07/29/2023 2:42 PM NEWS GATHERING TECHNICIAN): Symptoms for 2 weeks that have improved [...] interstitial PNA last month via CXR at [facility]. Repeat CXR here at [facility] on 11/13/22 was unremarkable, however patient still having fevers. Will order high resolution CT chest to r/o interstitial disease. Will repeat CBC due to neutrophilia on 11/09/22. Will refer to charge entry clerk for further assessment. Finish most recent round [...] Call with any fevers. Will refer to Construction Project Coordinator for further assessment. Assessment & Plan (11/09/2022 2:21 PM CDT): Likely related to pneumonia, see plan above. Family history of colon cancer 02/24/2022 Overview (02/24/2022): Added automatically from request for surgery [id number] Personal history of colonic polyps 02/24/2022 Overview (02/24/2022): Added automatically from request for surgery [id number] Adjustment insomnia 01/12/2018 Chronic rhinitis 12/02/2013 Overview [...] mellitus Assessment & Plan (07/11/2019 9:46 AM NEWS GATHERING TECHNICIAN): She is here for follow up and [...] HgbA1C prior to her visit with Dr. Goodman in August. Multiple-type hyperlipidemia 12/02/2013 Overview (10/23/2016): Hyperlipemia History of kidney stones 12/02/2013 Overview (10/23/2016): Kidney stones Resolved Problems Problem Noted Date Diagnosed Date Resolved Date Interstitial pneumonia of both lungs 11/09/2022 09/13/2023 Assessment & Plan (11/09/2022 2:20 PM CDT): PNA confirmed on CXR done at [facility] 10/26/22. URI symptoms since 10/06/22 have [...] ER Fax results of CXR to Dr. Goodman and Gunnar Rivera NP Follow up as scheduled with Dr. Goodman or sooner if necessary Assessment & Plan [...] ER Follow up as scheduled with Dr. Goodman or sooner if necessary Encounter for screening colonoscopy 02/24/2022 08/24/2022 Overview (02/24/2022): Added automatically from request for surgery [id number] Traumatic closed fracture of lateral malleolus with minimal displacement 11/29/202012/2022 Chronic GERD 01/12/2018 06/04/2020 Right shoulder tendinitis 08/20/2017 Vitamin D deficiency 12/02/2013 020 Overview (10/23/2016): Vitamin D deficiency Cobalamin deficiency 12/02/2013 020 Overview (10/23/2016): B12 deficiency Encounters Date Type Department Care Team Description 04/16/2025 Results Follow-Up [facility] [address] [place] [address] Jil Pisano MD Surgical pathology 04/09/2025 3:34 PM CDT - 04/09/2025 11:59 [place] [address] Papanicolaou smear of cervix with atypical squamous cells of undetermined significance (ASC-US); Cervical high risk human papillomavirus (HPV) DNA test positive Discharge Disposition: Discharge to home or self care 04/09/2025 2:30 PM CDT Procedure visit [facility] [address] [place] [address] Jil Pisano MD Papanicolaou smear of cervix with atypical squamous cells of undetermined significance (ASC-US) (Primary Dx); Cervical high risk human papillomavirus (HPV) DNA test positive 03/19/2025 Results Follow-Up [facility] [address] [place] [address] Jil Pisano MD Pap and High Risk HPV and Genotyping (Cytology Component) 03/12/2025 1:35 PM CDT - 03/12/2025 11:59 PM CDT Hospital Encounter [facility] [address] [place] [address] Screening for malignant neoplasm of the cervix; Carcinoma in situ of endocervix Discharge Disposition: Discharge to home or self care 03/12/2025 10:50 AM CDT Office Visit [facility] [address] [place] [address] Jil Pisano MD Encounter for gynecological examination [...] blood pressure reading 11/2003 Elevated LFTs Diabetes Menopause Kidney stone Collagenous colitis Hypertension Hypercholesteremia [...] on file Legal Sex Female 3:06 PM NEWS GATHERING TECHNICIAN Gender Identity Not on file Sexual Orientation [...] - - Weight 66.7 kg (147 lb) 04/09/2025 2:23 PM CDT Height 167.6 cm (5' 6) 03/12/2025 [...] 02/25/2024, 02/0 03/2024, 02/22/2023, Additional history exists Covid-19 Vaccine (2024-08 6 season) 2025 12/06/2021, 10/09/2020, 09/17/2020 Influenza Vaccine (#1) 2025 , 05/14/2022, 05/14/2022, Additional history exists Lipid Panel 10/31/2025 10/31/2024, 01/0 02/2021, 07/20/2019, Additional history exists Cervical Cancer Screening 03/12/20262024, 03/12/2025, 03/10/2024, Additional history exists Regular Well Visit/Exam 18-64 03/12/2026, 03/10/2024, 09/13/2023, Additional history exists Breast Cancer Screening-Mammogram 03/27/2026 03/27/2025, 03/27/2025, 03/14/2024, Additional history exists DTaP/Tdap/Td Vaccine (3 - [...] Procedure Name Priority Date/Time Associated Diagnosis Comments SURGICAL PATHOLOGY Routine 04/09/2025 12:46 PM CDT Papanicolaou smear of cervix with atypical squamous cells of undetermined significance (ASC-US) Cervical high risk human papillomavirus (HPV) DNA test positive HIGH RISK HPV DNA DETECTION WITH GENOTYPING Routine 03/12/2025 1:35 PM CDT Screening for malignant neoplasm of the cervix Carcinoma in situ of endocervix PAP AND HIGH RISK HPV, REFLEX TO GENOTYPING Routine 03/12/2025 11:27 AM CDT Screening for malignant neoplasm of the cervix Carcinoma in situ of endocervix SCREENING MAMMOGRAM BILATERAL W CARL Schedule Routine, Read Routine (OP Routine) 03/14/2024 [...] complicating diabetes (HCC) COLONOSCOPY 07/27/2022 7:18 AM NEWS GATHERING TECHNICIAN LIPID PANEL Routine 07/26/2020 9:21 AM NEWS GATHERING TECHNICIAN Type 2 diabetes mellitus with microalbuminuria, without long-term current use of insulin (HCC) HEPATITIS C ANTIBODY Routine 12/24/2017 7:57 AM CDT Need for hepatitis C screening test from Last 3 Months or Most Recently Relevant to Health Maintenance Results * Surgical pathology (04/09/2025 12:46 PM CDT) Tissue (Endocervix, curettage) 04/09/2025 12:46 PM CDT 04/10/2025 12:46 PM CDT Narrative PATHOLOGY CH - 04/13/2025 7:25 PM CDT [facility] results best viewed via link to PDF [facility] Department of Pathology [address] [place] [address] Note to Patients: This report may contain [...] can answer questions and explain the details. Final Report Patient Name: ROJELIO DICKINSON Address: [address] [place] [address] Gender: F : 1960 (Age: 64) Service: Location: [facility] : [id number] [facility] #: [id number] Patient Type: SPECIMEN Taken: 04/09/2025 Received: 04/10/2025 Accessioned: 04/10/2025 Reported: 04/13/2025 Physician(s):Jil Pisano MD Diagnosis: Uterus, endocervix, curettage: - Detached fragments of atrophic squamous epithelium with focal features consistent with low-grade squamous intraepithelial lesion (mild dysplasia/JOVANI I). Mychal Huerta M.D. Report Electronically Reviewed and Signed Out By Mychal Huerta M.D. 04/13/2025 19:25:50 Specimen(s) Received: A: Endocervical Microscopic Description: Microscopic examination of the endocervical curettage, examined at multiple levels show detached fragments of mildly inflamed squamous mucosa with atrophic features and focal changes that are consistent with at least low-grade squamous intraepithelial lesion (mild dysplasia/JOVANI I). No definitive evidence of a high-grade of dysplasia, although this is difficult to assess due to the presence of marked atrophy. A p16 immunostain is performed (with appropriate controls) and shows only focal area of somewhat weak staining. Recommend follow-up as clinically indicated. Clinical History: Papanicolaou smear of cervix with ASC-US, cervical high risk HPV DNA test positive Gross Description: The specimen is submitted in a single formalin filled container labeled ROJELIO DICKINSON and endocervical. It is an approximate 0.1 cc aggregate of transparent mucoid material and flex of valerio tissue. All in one cassette. Kisha Ruano R.N., P.A./Lesli Carrasco M.D. REPORT IMAGES AND SCANNED DOCUMENTS, IF INCLUDED, ONLY VIEWABLE IN PDF VERSION OF REPORT The performance characteristics of some immunohistochemical stains, fluorescence in-situ hybridization tests and immunophenotyping by flow cytometry cited in this report (if any) were determined by the Surgical Pathology Department at [facility] as part of an ongoing quality control associate program and in compliance with federally mandated [...] characteristics determined by the Surgical Pathology Department [facility]. It has not been cleared or approved by the U. S. Food and Drug Administration. Note for decalcified specimens: This assay has not been validated on decalcified tissues. Results should be interpreted with caution given the possibility of false negativity on decalcified specimens us Jil Pisano MD LAB PATHOLOGY ORDERAB LES Final Result PATHOLOGY [address] [place] [address] * (ABNORMAL) High Risk HPV DNA Detection with Genotyping (Molecular component) (03/12/2025 1:35 PM CDT) HPV HR 16 Not Detected Not Detected [facility] Comment:Testing performed by : [facility], [address] [place] [address] HPV HR 18 Not Detected Not Detected [facility] Comment:Testing performed by : [facility], [address] [place]., [address] HPV HR Non 16/18 Detected(A) Not Detected [...] this test have been verified by the [facility] laboratory. Correlate with separately reported cytology results, as applicable. Interpretive data last revised 23 Testing performed by: [facility], [address] [place]., [address] Endocervical 03/12/2025 1:35 PM CDT 03/13/2025 3:40 PM CDT [facility] - 03/14/2025 8:54 AM CDT Clinical history and diagnosis->DX Z12.4 D06.9 2023- ASCUS,HPV POSITIVE. COLP/LEEP- JOVANI 3 Testing type->Screening Last menstrual period (date if known)->N/A Previous positive HPV history?->Yes Date of positive HPV->2023 Previous negative PAP?->No Previous atypical cytology->ASCUS Jil Pisano MD LAB BODY FLUIDS AND S TOOLS ORDERABLES Final Result [facility] [address] Department [place] [address] [facility] * (ABNORMAL) Pap and High Risk HPV and Genotyping (Cytology Component) (03/12/2025 11:27 AM CDT) Thin prep (Pap test) 03/12/2025 11:27 AM CDT 03/12/2025 11:27 AM CDT Narrative PATHOLOGY - 03/16/2025 4:42 PM CDT [facility] Department of Pathology [address] [place] [address] Final Report with Addendum Note to [...] and explain the details. Patient Name: ROJELIO DICKINSON Address: [address] [place] [address] Gender: F : 1960 (Age: 64) Service: Location: [facility] : [id number] [facility] #: [id number] Patient Type: [facility] SPECIMEN Taken: 03/12/2025 Received: 03/12/2025 Accessioned:: 03/13/2025 Reported: 03/16/2025 Physician(s): MD iJl Goodwin MD Diagnosis: SOURCE OF SPECIMEN SCREENING [...] this test have been verified by the [facility] laboratory. Correlate with reported [...] determined by the Surgical Pathology Department at [facility] as part of an ongoing quality control associate program and in compliance with federally mandated [...] characteristics determined by the Surgical Pathology Department [facility]. It has not been cleared or approved by the U. S. Food and Drug Administration. Jil Pisano MD LAB CYTOLOGY ORDERABL ES Final Result Performing Organization Address City/[facility]/ZIP Co de Phone Number PATHOLOGY [address] [place] [address] * Albumin Creatinine Ratio, Urine (02/25/2024 8:11 [...] 8:11 AM CDT 02/25/2024 8:12 AM CDT Mckenzie Goodman MD LAB URINE ORDERABLES Final Result [facility] [address] [address] * (ABNORMAL) Hemoglobin A1c (02/25/2024 8:11 AM CDT) [facility] Hgb A1C 6.7(H) <5.7 % of total Hgb [facility] Comment: For someone without known diabetes, [...] change in test platforms from the [employer] Brand Marketing Intern to the Keaton deborah c503 may have shifted HbA1c results compared to historical results. Based on laboratory validation testing conducted at [facility], the Keaton platform relative to the Akers [...] CDT 02/25/2024 8:12 AM CDT us Mckenzie Goodman MD LAB BLOOD ORDERABLES Final Result [facility] [address] [place] [address] * (ABNORMAL) Comprehensive metabolic panel (02/25/2024 8:11 AM CDT) [facility] Glucose 136(H) 65 - 99 mg/dL [facility] Comment: Fasting reference interval For someone [...] CDT 02/25/2024 8:12 AM CDT us Mckenzie Goodman MD LAB BLOOD ORDERABLES Final Result [facility] [address] [facility] [place] [address] * COLONOSCOPY (07/27/2022 7:18 AM NEWS GATHERING TECHNICIAN) Anatomical Region Laterality Modality Other Narrative Procedure Note Kathie Davis MD - 07/27/2022 7:18 AM CST [facility] Patient Name: Rojelio Dickinson Procedure Date: 07/27/2022 7:18 AM Date of : 1960 Admit Type: Outpatient Age: 61 Gender: Female Attending MD: Kathie Davis M.D. Room: [facility] ENDOSCOPY ROOM 1 Note Status: Finalized Patient Profile: This is a 61 year old female. History of colonpolyps. Two aunts and 1 uncle all had colon cancer Procedure: Colonoscopy Indications: Colon cancer screening in patient at [facility]: Family history of colorectal cancer in multiple 2nd degree relatives, High risk colon cancersurveillance: Personal history of colonic polyps, Lastcolonoscopy: October 2016 Referring MD: Mckenzie Goodman M.D. Providers: Kathie Davis M.D. Impression: - [...] passed under direct vision.The Pediatric Colonoscope [id number]-H190L [id number] was introduced through the anus and advanced [...] 7:18 AM Procedure Code(s): --- Professional --- 17788, Colonoscopy, flexible; diagnostic, including collection of specimen(s) by brushing or washing, when performed (separateprocedure) Diagnosis Code(s): --- Professional --- Z80.0, Family history of malignant neoplasm of digestive organs Z86.010, Personal history of colonic polyps K64.8, Other hemorrhoids CPT copyright 2020 [employer]. All rights reserved. The codes documented in this report are preliminary and upon glove brusher reviewmay be revised to meet current compliance requirements. Recognized by the [employer] for promoting quality in endoscopy us Kathie Davis MD ENDOSCOPY PROCEDURES Final Result * (ABNORMAL) Lipid panel (07/26/2020 9:21 AM NEWS GATHERING TECHNICIAN) Cholesterol 139 30 - 199 mg/dL [facility] Comment: Interpretive Data Ages [...] on 2018. Triglycerides 177(H) <=149 mg/dL [facility] Comment: Interpretive Data Ages [...] on 2018. HDL 39(L) >=40 mg/dL [facility] Comment: Interpretive Data Ages [...] revised on 2018. Chol/HDL ratio 4 [facility] Blood specimen (specimen) 07/26/2020 9:21 AM NEWS GATHERING TECHNICIAN 07/26/2020 1:09 PM NEWS GATHERING TECHNICIAN us Mckenzie Goodman MD LAB BLOOD ORDERABLES Final Result [facility] [address] Department [place] [address] * Hepatitis C antibody (12/24/2017 7:57 AM CDT) Hep C Ab NON-REACTI VE NON-REACTI VE [facility] SIGNAL TO CUT-OFF 0.04 <1.00 [facility] [place] Blood specimen (specimen) 12/24/2017 7:57 AM CDT 12/24/2017 7:58 AM CDT Narrative [facility] - 12/25/2017 9:12 PM CDT FASTING:YES FASTING: YES Resulting Agency Comment Performing Organization Information: Site ID: [place] Name: [facility] Address: [address] [address] Director: Wilfrido Hernandez D.O., MPH us Mckenzie Goodman MD LAB MICROBIOLOGY - GENERAL ORDERABLES Final Result [facility] [place] from Last 3 Months or Most Recently Relevant to Health Maintenance Insurance [facility] [place] ACCESS BL CHOICE [place] P[place] Advance Directives For more information, please contact: [phone] Documents on File Type Date Recorded Patient Continuous Miner Expl anation ADVANCE DIRECTIVE 11/28/2021 LIV[facility]AITLIN [...] 7:13 AM 07/27/2022 7:14 AM Care Teams Back Grinder Relationship Specialty Start Date End Date No, Physician PCP - General 09/27/24 Kathie Davis MD Consulting Physician Gastroenterology 07/13/17 Wayne Payne DO [address] [place] [address] Optometry 07/13/17 Jil Pisano MD [address] [address] Adjunct Spanish Instructor Obstetrics and Gynecology 07/13/17 Wally Meneses MD PhD [address] [address] Referring Physician Endocrinology 09/13/19 Angel Justin MD [address] [address] Surgeon Orthopedic Surgery 12/06/20
--- OUTSIDE RECORDS SUMMARY | 2025-04-24 09:59 | XMS_ITS | Encounter Summary ---
Author Organization [facility] Address [address] [place] [address] Phone Care Team Providers Care Lpn Private Duty Name Role Phone Mckenzie Goodman MD Primary Care Provider [phone] Kathie Davis MD Unavailable Wayne Payne DO Unavailable [phone] Jil Pisano MD Unavailable Wally Meneses MD PhD Unavailable Angel Justin MD Unavailable [phone] No, Physician Primary Care Provider [phone] Encounter Details Date Type Department Care Team (Late st Contact Info) Description 10/26/2022 Orders Only [facility] [address] [place] [address] Mckenzie Goodman MD [address] [address] Social History Tobacco Use Types [...] on file Legal 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 Gender Identity Not on file Sexual Orientation [...] on filedocumented in this encounter Care Teams Lpn Private Duty Relationship Specialty Start Date End Date Mckenzie Goodman MD PCP - General 10/23/16 07/26/24 No, Physician PCP - General 09/27/24 Kathie Davis MD Consulting Physician Gastroenterology 07/13/17 Wayne Payne DO [address] [place] [address] Optometry 07/13/17 Jil Pisano MD [address] [address] It Application Support Analyst Obstetrics and Gynecology 07/13/17 Wally Meneses MD PhD [address] [address] Referring Physician Endocrinology 09/13/19 Angel Justin MD [address] [place] [address] Surgeon Orthopedic Surgery 12/06/20 documented as of this encounter
== END 2025-04-24 09:26 | disposition home or self-care (01) ==
LOC: CHSIMG 09:28
PROVIDERS: PCP Internal Medicine; Visit Provider Internal Medicine
DX: R92.8 Other abnormal and inconclusive findings on diagnostic imaging of breast (principal)
CPT/HCPCS: 76642; 77061; 77065; G0279